=== PATIENT | female | born 1935 | race Caucasian/White ===

== ENCOUNTER 2021-02-12 16:13 | Inpatient (IN) ==
--- NOTE | 2021-02-12 17:22 | Emergency Department Note ---
HPI General Chief complaint: Shortness of Breath/Dyspnea Stated complaint: Shortness of Breath Time Seen by Provider: 02/12/21 16:43 Source: patient Mode of arrival: ambulatory Limitations: no limitations History of Present Illness HPI Narrative: Narrative: This patient with a history significant with coronary artery disease with recent stenting and CHF, bladder mass and renal failure presents with a complaint of shortness of breath. She has some chronic shortness of breath and wears up to 2 L of oxygen at baseline. These are what her reports as "good days." Today she has been having what he describes as a bad day. She has had to increase her oxygen up to 4 L/min and has not been able to get relief. She has been feeling significantly short of breath with minimal exertion which continues at rest. She does not seem to be able to recover. She did have an appointment with cardiology today. She reports this was a routine follow-up. There were no medication changes. After getting home she could not recover. Has been turned her oxygen up to 4 L and she did not seem to get relief which is why he brings her in. She has not had fever. She been without chills. She is not been experiencing chest pain. She denies any. She is not had any vomiting or diarrhea. Related Data Home Medications Medication Instructions Recorded Confirmed aspirin 81 mg tablet,delayed 81 mg PO QAM tab 12/10/20 02/05/21 release atorvastatin 80 mg tablet 40 mg PO QDAY tab 12/10/20 02/12/21 cholecalciferol (vitamin D3) 25 25 mcg PO QAM cap 12/10/20 02/05/21 mcg (1,000 unit) capsule levothyroxine 100 mcg tablet 100 mcg PO QDAY tab 01/13/21 02/05/21 prochlorperazine maleate 5 mg 5 mg PO Q6H PRN tab 01/13/21 02/05/21 tablet sildenafil (pulm.hypertension) 20 20 mg PO TID tab 01/13/21 02/05/21 mg tablet hyoscyamine sulfate 0.125 mg SUBLINGUAL TID 02/05/21 02/05/21 metoprolol succinate 25 mg PO QDAY 02/05/21 02/12/21 nitroglycerin [Nitrostat] 0.4 mg SUBLINGUAL Q5M PRN 02/05/21 02/05/21 prednisone 4 mg PO QDAY 02/05/21 02/12/21 sodium chloride 1,000 mg PO TID 02/05/21 02/05/21 diltiazem HCl 240 mg PO QAM 02/12/21 02/12/21 furosemide 20 mg PO QAM 02/12/21 02/12/21 ondansetron 4 mg PO Q6H PRN 02/12/21 02/12/21 Previous Rx's Medication Instructions Recorded ipratropium bromide 42 mcg (0.06 2 spray INTRANASAL TID PRN #45 ml 06/27/17 %) nasal spray lorazepam 1 mg tablet 1 mg PO QHS PRN #90 tab 09/28/17 Massage therapy #12 each 12/14/17 estradiol 0.5 mg tablet 0.5 mg PO QDAY #90 tab 12/14/17 clopidogrel 75 mg tablet 75 mg PO QDAY #90 tab 02/19/18 hydralazine 50 mg tablet 50 mg PO TID #300 tab 01/25/21 cephalexin 500 mg PO TID #15 cap 02/03/21 Allergies Allergy/AdvReac Type Severity Reaction Status Date / Time atenolol Allergy Mild Short of Verified 02/05/21 14:02 breath and fatigued codeine Allergy Mild Hives Verified 02/05/21 14:02 hydrocodone Allergy Mild Hives Verified 02/05/21 14:02 meperidine [From Demerol] Allergy Mild Hives Verified 02/05/21 14:02 morphine Allergy Mild Hives Verified 02/05/21 14:02 amiodarone AdvReac Mild Nausea Verified 02/05/21 14:02 all narcotics Allergy Mild swelling Uncoded 02/05/21 14:02 and Nausea Review of Systems ROS ROS Narrative: Narrative: Pertinent positives and negatives as noted in HPI. All other systems reviewed and negative. [facility] Narrative Patient History Narrative: Narrative: Medical/Surgical/Family History All Active Problems (Updated 02/12/21 @ 22:05 by Kassandra Fitzgerald PA-C) Cervical dysplasia (Chronic) Degeneration, intervertebral disc, lumbosacral (Chronic) Diverticulosis of colon (Chronic) Hyperlipidemia (Chronic) Hypothyroidism, acquired (Chronic) Irritable bowel syndrome (Chronic) Keratoconjunctivitis sicca, not specified as Sjogren's (Chronic) Nuclear sclerosis (Chronic) Polymyalgia rheumatica (Chronic 03/08/12) History of colonoscopy (Chronic 10/29/14) Arthritis (Chronic) Candidiasis of breast (Chronic) Essential hypertension (Chronic) Contusion of right elbow (Chronic) Neuralgia (Chronic) Chest pain due to myocardial ischemia (Chronic) Chest pain (Chronic) Status post cardiac surgery (Chronic) Vertigo (Chronic) Beta-lorena intolerance (Chronic) Diarrhea (Chronic) Abdominal pain (Chronic) Left supraspinatus tendinitis (Chronic) Orthostatic hypotension (Chronic) Skin tear of left lower leg without complication (Chronic) URI, acute (Chronic) ALCIRA (acute kidney injury) (Chronic) ARF (acute renal failure) (Chronic) Hyponatremia (Chronic) Hypertension (Chronic) Hypoxia (Chronic) Fluid overload (Chronic) Pleural effusion (Chronic) Bladder mass (Chronic) CAD (coronary artery disease) (Chronic) Dry heaves (Chronic) Weakness (Chronic) Cystitis (Chronic) Renal cyst (Chronic) Chills (Chronic) Painful urination (Chronic) Urgency of urination (Chronic) Anxiety (Chronic) Hematuria (Acute) Hydronephrosis of left kidney (Acute) Fatigue (Chronic) Panic attacks (Chronic) Microscopic colitis (Chronic) Moderate aortic stenosis (Chronic) Peripheral vascular disease (Chronic) Pulmonary HTN (Acute) Renal failure (ARF), acute on chronic (Acute) 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 Will be difficult to biopsy due to recent Left main BHAVYA. Cysto and brushings and urine cytology Blepharitis Bronchitis Bursitis Hip region Recorded 09/15/10 Tronchanteric bursitis CAD (coronary artery disease) Candidiasis of breast Cervical dysplasia Chest pain Chest pain due to myocardial ischemia Chills Contusion of orbital tissues Contusion of right elbow Cystitis Degeneration, intervertebral disc, lumbosacral Diarrhea Diverticulosis of colon 10/29/2014 - Dr. Barnes Dry heaves Essential hypertension Fatigue Fluid overload History of left heart catheterization (12/15/16) Hydronephrosis of left kidney Between 10/23 and Dec 2020 based on SCr trend Hyperlipidemia Hypertension B-lorena stopped and Diltiazem added. Hydralazine at 50 mg TID Holding Loop diuretic On PDEi for pulmonary HTN Hyponatremia Improved. Driven by increase renin/ang II => increased ADH release (appropriate ADH) Hypothyroidism, acquired Hypoxia Injury of right elbow Irritable bowel syndrome Keratoconjunctivitis sicca, not specified as Sjogren's Left supraspinatus tendinitis Microscopic colitis Moderate aortic stenosis Neuralgia Nuclear sclerosis Orthostatic hypotension Pain in and around eye Painful urination Panic attacks Occasional Peripheral vascular disease Pleural effusion left Polymyalgia rheumatica (03/08/12) low dose steroid dependent Renal cyst Right Skin candidiasis Skin tear of left lower leg without complication Urgency of urination URI, acute Vertigo Weakness Surgical History H/O bilateral cataract extraction 01/21/15 right eye 01/07/15 left eye History of back surgery 07/01 History of cholecystectomy History of colonoscopy (10/29/14) Dr. 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 Status post cardiac surgery RV issues noted at the time of CABG per patient report Family History Maternal Grandfather Aortic aneurysm Uncle Aortic aneurysm Mother Cardiac disease Has known bundle branch block Grandfather Heart attack Brother Heart attack Father , age 68 ALS (amyotrophic lateral sclerosis) Sister Hypertension Aunt Cancer Maternal Social History Smoking Status: Never smoker Alcohol Intake Frequency: does not drink Substance Use: does not use Exam Narrative Narrative: Narrative: Vital signs noted General: mild distress. Skin: Warm. Dry. No rash. Normal color. Mouth: Membranes moist. Normal inspection. Neck: Good ROM. No meningeal signs. Supple. Cardiovascular: Regular rate and rhythm. No murmur. Respiratory: Tachypnea, rales bilaterally. Decreased lung sounds in the bases. Gastrointestinal: Abdomen soft. No tenderness. No distention. Normal bowel sounds. No rebound tenderness or guarding. Back: Normal inspection. No CVA tenderness. No midline tenderness. Extremities: No tenderness. No swelling. No erythema. No edema. Good peripheral pulses x 4 Neurological: No focal neurological deficits observed. Alert. Oriented x 3 General Limitations: no limitations Course Course Course Narrative: Labs ordered and reviewed white count is markedly elevated. EKG shows sinus rhythm rate 88 with occasional PAC. QRS complexes are narrow and at regular intervals. Nonspecific ST changes. No significant change compared to prior EKG from 02/03/2021 other than the presence of PACs now. X-ray is significant for pulmonary congestion with bilateral pleural effusions. Radiology also identifies infiltrate. Lactic acid is 1.9 proBNP is 17,000, this is increased from 11,000 on the . Troponin is mildly elevated at 0.03. Creatinine is elevated at 2.6 with a BUN of 47. This is increased from prior value of 1.3 and 35 on the . Troponin is attributed to the worsening kidney function. Patient has not had any chest pain. Patient is treated with 40 mg IV Lasix. She is also medicated with Rocephin and azithromycin for pneumonia. Patient is discussed with the hospital service for management of pneumonia, and congestive heart failure with fluid overload as well as renal insufficiency and dehydration. Vital Signs Vital signs: Vital Signs Temperature 99.5 F H 02/12/21 16:14 Pulse Rate 90 02/12/21 16:14 Respiratory Rate 26 H 02/12/21 16:14 Blood Pressure 165/66 02/12/21 16:14 Pulse Oximetry (%) 89 L 02/12/21 16:14 Temperature 99.5 F H 02/12/21 16:14 Pulse Rate 89 02/12/21 21:41 Respiratory Rate 26 H 02/12/21 16:14 Blood Pressure 148/76 02/12/21 21:41 Pulse Oximetry (%) 92 02/12/21 21:41 MDM MDM Narrative Medical decision making narrative: Narrative: Lab Data Result diagrams: 02/12/21 17:21 Labs: Lab Results 02/12/21 02/12/21 02/12/21 Range/Units 17:21 17:21 17:21 WBC 17.1 H (4.5-11.0) K/mcL RBC 3.30 L (3.59-5.38) M/mcL Hgb 10.2 L (11.2-15.7) g/dL Hct 30.7 L (34.1-44.9) % POC Hct 33 L (36-48) % MCV 93.0 (80.0-100.0) fL MCH 30.9 (26.0-34.0) pg MCHC 33.2 (31.0-36.0) g/dL RDW 16.8 H (11.5-14.5) % Plt Count 155 (140-440) K/mcL MPV 10.2 (7.4-10.4) fL Neut % (Auto) 83.3 H (38.0-78.0) % Lymph % (Auto) 9.8 L (15.5-49.0) % [place] % (Auto) 6.6 (1.0-12.0) % Eos % (Auto) 0.1 (0.0-7.0) % Baso % (Auto) 0.2 (0.0-2.0) % Lymph # (Auto) 1.67 (1.50-4.80) K/mcL [place] # (Auto) 1.12 H (0.10-0.90) K/mcL Eos # (Auto) 0.02 (0.00-0.70) K/mcL Baso # (Auto) 0.04 (0.00-0.30) K/mcL Absolute Neutrophils 14.20 H (1.80-8.00) K/mcL POC Sodium 137 (133-145) mEq/L POC Potassium 3.3 (3.3-5.1) mEql/L POC Chloride 102 (96-108) mEq/L POC Total CO2 21 L (22-30) mmol/L POC BUN 47 H (6-20) mg/dL POC Creatinine 2.6 H (0.6-1.2) mg/dL POC Glucose 114 H (70-105) mg/dL POC WB Ioniz Calcium 1.08 L (1.16-1.32) mmEq/L Total Creatine Kinase 53 (24-170) U/L CK-MB (CK-2) 1.7 (<3.7) ng/mL Troponin T 0.03 H (<0.03) ng/mL NT-Pro-B Natriuret Pep 46418.0 H (<450.0) pg/mL ED POC Tests ED POC Tests: JOSH - SARS Antigen Negative Discharge Plan Patient/Caregiver Discharge Instructions Pt seen by AREA COORDINATOR/PA only: Yes Clinical Impression: Pneumonia, ALCIRA (acute kidney injury), Pleural effusion, CHF (congestive heart failure) Patient Disposition: Xfer As Outpt/Obs ([facility]) Follow up with: David Ríos MD [Primary Care Provider] - Prescriptions: No Action ipratropium bromide 42 mcg (0.06 %) spray,non-aerosol 2 spray INTRANASAL TID PRN (Reason: allergy symptoms) Qty: 45 RF: 3 clopidogrel 75 mg tablet 75 mg PO QDAY Qty: 90 RF: 3 hydralazine 50 mg tablet 50 mg PO TID Qty: 300 RF: 3 (DME) Massage therapy Qty: 12 RF: 0 estradiol 0.5 mg tablet 0.5 mg PO QDAY Qty: 90 RF: 3 lorazepam 1 mg tablet 1 mg PO QHS PRN (Reason: insomnia) Qty: 90 RF: 1 aspirin 81 mg tablet,delayed release (DR/EC) 81 mg PO QAM RF: 0 atorvastatin 80 mg tablet 40 mg PO QDAY RF: 0 cholecalciferol (vitamin D3) 25 mcg (1,000 unit) capsule 25 mcg PO QAM RF: 0 levothyroxine 100 mcg tablet 100 mcg PO QDAY RF: 0 sildenafil (pulm.hypertension) 20 mg tablet 20 mg PO TID RF: 0 prochlorperazine maleate 5 mg tablet 5 mg PO Q6H PRN (Reason: nausea and vomiting) RF: 0 sodium chloride 1 gram Tablet 1,000 mg PO TID RF: 0 hyoscyamine sulfate 0.125 mg tablet, sublingual 0.125 mg sublingual TID RF: 0 nitroglycerin [Nitrostat] 0.4 mg Tablet, Sublingual 0.4 mg SUBLINGUAL Q5M PRN (Reason: Chest Pain) RF: 0 metoprolol succinate 25 mg Tablet Extended Release 24 Hr 25 mg PO QDAY RF: 0 prednisone 5 mg tablet 4 mg PO QDAY RF: 0 cephalexin 500 mg capsule 500 mg PO TID Qty: 15 RF: 0 diltiazem HCl 240 mg capsule,extended release 24hr 240 mg PO QAM RF: 0 ondansetron 4 mg Tablet,Disintegrating 4 mg PO Q6H PRN (Reason: Nausea) RF: 0 furosemide 40 mg tablet 20 mg PO QAM RF: 0
[2021-02-12 17:34] LABS: POC Blood Urea Nitrogen 47 mg/dL (6-20); POC CO2 21 mmol/L (22-30); POC Calcium, Ionized 1.08 mmEq/L (1.16-1.32); POC Chloride 102 mEq/L (96-108); POC Creatinine 2.6 mg/dL (0.6-1.2); POC Glucose, Random 114 mg/dL (70-105); POC Hematocrit 33 % (36-48); POC Potassium 3.3 mEql/L (3.3-5.1); POC Sodium 137 mEq/L (133-145)
[2021-02-12] MEDS ORDERED: FUROSEMIDE 40 MG/4 ML VIAL IV ONE (17:51)
[2021-02-12 18:03] LABS: Basophils # (Auto) 0.04 K/mcL (0.00-0.30); Basophils % (Auto) 0.2 % (0.0-2.0); Eosinophils # (Auto) 0.02 K/mcL (0.00-0.70); Eosinophils % (Auto) 0.1 % (0.0-7.0); Hematocrit 30.7 % (34.1-44.9); Hemoglobin 10.2 g/dL (11.2-15.7); Lymphocytes # (Auto) 1.67 K/mcL (1.50-4.80); Lymphocytes % (Auto) 9.8 % (15.5-49.0); Mean Corpuscular HGB Conc 33.2 g/dL (31.0-36.0); Mean Platelet Volume 10.2 fL (7.4-10.4); Monocytes # (Auto) 1.12 K/mcL (0.10-0.90); Monocytes % (Auto) 6.6 % (1.0-12.0); Neutrophils % (Auto) 83.3 % (38.0-78.0); Platelet Count 155 K/mcL (140-440); Red Cell Distribution Width 16.8 % (11.5-14.5); WBC 17.1 K/mcL (4.5-11.0)
[2021-02-12 18:32] LABS: Creatine Kinase 53 U/L (24-170); Creatine Kinase MB 1.7 ng/mL (<3.7)
--- NOTE | 2021-02-12 18:37 | XRay Report ---
CLINICAL INFORMATION: sob COMPARISON: 02/03/2021 FINDINGS: Moderate cardiomegaly is unchanged. Sternotomy changes noted. Mediastinum is unremarkable. Pulmonary vessels are moderately distended and there is moderate peribronchovascular edema. Large left and moderate right pleural effusion with compressive atelectasis or, less likely, infiltrates in the lung bases show slight progression IMPRESSION: Moderate CHF. Large left and moderate right pleural effusion. Moderate bibasilar airspace disease is likely compressive atelectasis, however infiltrate not excluded Interpreted and Authenticated by: Yeyo Gaston 02/12/21
[2021-02-12] MEDS ORDERED: cefTRIAXone 1 GM VIAL IV ONE (18:51)
[2021-02-12] MEDS ORDERED: AZITHROMYCIN 500 MG in DEXTROSE 5% IN WATER 250 ML IV ONE (18:51)
--- NOTE | 2021-02-12 23:11 | Internal Med History&Physical ---
HPI History of Present Illness Patient information: Note initiated : 02/12/21 at 11:10 pm Service Date, if different from initiated Date: [] Patient: Holly Hernandez a 85 y/o F admitted on for Shortness of Breath. Chief Complaint: [CHF exacerbation, pneumonia] History of present illness: Ms. Hernandez is a 85 year old F CAD status post stenting, CHF, pulmonary hypertension, chronic kidney disease stage III, hypothyroidism, home oxygen therapy, presenting with 1 day history of acute on chronic respiratory failure. She used home oxygen up to 2 L for good days and even more for bad days according to . 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 She had increasing degree of shortness of breath after the appointment to the point that she increased her oxygen to 4 L but still felt short of breath. Patient is otherwise unable to provide much details of her symptoms such as whether or not she has cough, wheezing, chest pain, fever or chills, unintentional weight gain, leg swellings, etc. patient presented to our ED for further evaluations for worsening shortness of breath. Vital signs significant for oxygen saturations in the high 80s on 2 L of supplemental oxygen's. Rest of the vital signs within normal limits. Labs significant for leukocytosis with WBC 17.1. BNP elevated to 17,000. Serum troponin 0.03. Serum creatinine 2.6 with baseline 1.3. Chest x-ray showing bilateral moderate to severe pleural effusion as well as moderate bibasilar atelectasis versus infiltrate. Constitutional Constitutional: Absent chills, excessive sweating, fatigue, fever(s) and weakness EENT Eyes: Absent blurry vision, change in vision, loss of vision and other visual disturbances Ears: Absent decreased hearing and tinnitus Nose, mouth and throat: Absent abnormal hearing, dry mouth, headache(s), nasal congestion and sore throat Cardiovascular Cardiovascular: Absent chest pain, chest pain at rest, edema, irregular heart rhythm and palpatations Respiratory Respiratory: Present dyspnea; Absent cough and wheezing Gastrointestinal Gastrointestinal: Absent abdominal pain, constipation, diarrhea, nausea and vomiting Musculoskeletal Musculoskeletal: Absent back pain, deformity, limited range of motion, muscle cramps, muscle weakness and numbness Integumentary Integumentary: Absent lesions, rash and wounds Neurological Neurological: Absent focal weakness, headache(s) and numbness Psychiatric Psychiatric: Absent anxiety, depression and hallucinations PFSH PFSH All Active Problems (Updated 02/12/21 @ 23:21 by Krishna Hinojosa MD) Acute on chronic respiratory failure with hypoxemia (Acute) On home oxygen therapy (Acute) CHF exacerbation (Acute) Chronic kidney disease, stage 3 (Acute) Stage 2 acute kidney injury (Acute) Cervical dysplasia (Chronic) Degeneration, intervertebral disc, lumbosacral (Chronic) Diverticulosis of colon (Chronic) Hyperlipidemia (Chronic) Hypothyroidism, acquired (Chronic) Irritable bowel syndrome (Chronic) Keratoconjunctivitis sicca, not specified as Sjogren's (Chronic) Nuclear sclerosis (Chronic) Polymyalgia rheumatica (Chronic 03/08/12) History of colonoscopy (Chronic 10/29/14) Arthritis (Chronic) Candidiasis of breast (Chronic) Essential hypertension (Chronic) Contusion of right elbow (Chronic) Neuralgia (Chronic) Chest pain due to myocardial ischemia (Chronic) Chest pain (Chronic) Status post cardiac surgery (Chronic) Vertigo (Chronic) Beta-lorena intolerance (Chronic) Diarrhea (Chronic) Abdominal pain (Chronic) Left supraspinatus tendinitis (Chronic) Orthostatic hypotension (Chronic) Skin tear of left lower leg without complication (Chronic) URI, acute (Chronic) ALCIRA (acute kidney injury) (Chronic) ARF (acute renal failure) (Chronic) Hyponatremia (Chronic) Hypertension (Chronic) Hypoxia (Chronic) Fluid overload (Chronic) Pleural effusion (Chronic) Bladder mass (Chronic) CAD (coronary artery disease) (Chronic) Dry heaves (Chronic) Weakness (Chronic) Cystitis (Chronic) Renal cyst (Chronic) Chills (Chronic) Painful urination (Chronic) Urgency of urination (Chronic) Anxiety (Chronic) Hematuria (Acute) Hydronephrosis of left kidney (Acute) Fatigue (Chronic) Panic attacks (Chronic) Microscopic colitis (Chronic) Moderate aortic stenosis (Chronic) Peripheral vascular disease (Chronic) Pulmonary HTN (Acute) Renal failure (ARF), acute on chronic (Acute) 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 Will be difficult to biopsy due to recent Left main BHAVYA. Cysto and brushings and urine cytology Blepharitis Bronchitis Bursitis Hip region Recorded 09/15/10 Tronchanteric bursitis CAD (coronary artery disease) Candidiasis of breast Cervical dysplasia Chest pain Chest pain due to myocardial ischemia Chills Contusion of orbital tissues Contusion of right elbow Cystitis Degeneration, intervertebral disc, lumbosacral Diarrhea Diverticulosis of colon 10/29/2014 - Dr. Barnes Dry heaves Essential hypertension Fatigue Fluid overload History of left heart catheterization (12/15/16) Hydronephrosis of left kidney Between 10/23 and Dec 2020 based on SCr trend Hyperlipidemia Hypertension B-lorena stopped and Diltiazem added. Hydralazine at 50 mg TID Holding Loop diuretic On PDEi for pulmonary HTN Hyponatremia Improved. Driven by increase renin/ang II => increased ADH release (appropriate ADH) Hypothyroidism, acquired Hypoxia Injury of right elbow Irritable bowel syndrome Keratoconjunctivitis sicca, not specified as Sjogren's Left supraspinatus tendinitis Microscopic colitis Moderate aortic stenosis Neuralgia Nuclear sclerosis Orthostatic hypotension Pain in and around eye Painful urination Panic attacks Occasional Peripheral vascular disease Pleural effusion left Polymyalgia rheumatica (03/08/12) low dose steroid dependent Renal cyst Right Skin candidiasis Skin tear of left lower leg without complication Urgency of urination URI, acute Vertigo Weakness Surgical History H/O bilateral cataract extraction 01/21/15 right eye 01/07/15 left eye History of back surgery 07/01 History of cholecystectomy History of colonoscopy (10/29/14) Dr. 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 Status post cardiac surgery RV issues noted at the time of CABG per patient report Family History Maternal Grandfather Aortic aneurysm Uncle Aortic aneurysm Mother Cardiac disease Has known bundle branch block Grandfather Heart attack Brother Heart attack Father , age 68 ALS (amyotrophic lateral sclerosis) Sister Hypertension Aunt Cancer Maternal Social History household members: spouse marital status: occupational status: retired smoking status: Never smoker alcohol intake frequency: does not drink substance use type: does not use umang/samaritan: [employer] Home Medications and Allergies Home Medications Medication Instructions Recorded Confirmed Type ipratropium bromide 42 mcg (0.06 2 spray INTRANASAL TID PRN #45 ml 06/27/17 02/05/21 Rx %) nasal spray lorazepam 1 mg tablet 1 mg PO QHS PRN #90 tab 09/28/17 02/05/21 Rx Massage therapy #12 each 12/14/17 01/18/21 Rx estradiol 0.5 mg tablet 0.5 mg PO QDAY #90 tab 12/14/17 02/05/21 Rx clopidogrel 75 mg tablet 75 mg PO QDAY #90 tab 02/19/18 02/05/21 Rx aspirin 81 mg tablet,delayed 81 mg PO QAM tab 12/10/20 02/05/21 History release atorvastatin 80 mg tablet 40 mg PO QDAY tab 12/10/20 02/12/21 History cholecalciferol (vitamin D3) 25 25 mcg PO QAM cap 12/10/20 02/05/21 History mcg (1,000 unit) capsule levothyroxine 100 mcg tablet 100 mcg PO QDAY tab 01/13/21 02/05/21 History prochlorperazine maleate 5 mg 5 mg PO Q6H PRN tab 01/13/21 02/05/21 History tablet sildenafil (pulm.hypertension) 20 20 mg PO TID tab 01/13/21 02/05/21 History mg tablet hydralazine 50 mg tablet 50 mg PO TID #300 tab 01/25/21 02/12/21 Rx cephalexin 500 mg PO TID #15 cap 02/03/21 02/05/21 Rx hyoscyamine sulfate 0.125 mg SUBLINGUAL TID 02/05/21 02/05/21 History metoprolol succinate 25 mg PO QDAY 02/05/21 02/12/21 History nitroglycerin [Nitrostat] 0.4 mg SUBLINGUAL Q5M PRN 02/05/21 02/05/21 History prednisone 4 mg PO QDAY 02/05/21 02/12/21 History sodium chloride 1,000 mg PO TID 02/05/21 02/05/21 History diltiazem HCl 240 mg PO QAM 02/12/21 02/12/21 History furosemide 20 mg PO QAM 02/12/21 02/12/21 History ondansetron 4 mg PO Q6H PRN 02/12/21 02/12/21 History Allergies Allergy/AdvReac Type Severity Reaction Status Date / Time atenolol Allergy Mild Short of Verified 02/05/21 14:02 breath and fatigued codeine Allergy Mild Hives Verified 02/05/21 14:02 hydrocodone Allergy Mild Hives Verified 02/05/21 14:02 meperidine [From Demerol] Allergy Mild Hives Verified 02/05/21 14:02 morphine Allergy Mild Hives Verified 02/05/21 14:02 amiodarone AdvReac Mild Nausea Verified 02/05/21 14:02 all narcotics Allergy Mild swelling Uncoded 02/05/21 14:02 and Nausea EXAM Constitutional Vitals: Temp Pulse Resp BP Pulse Ox 37.5 C H 92 H 26 H 149/74 91 02/12/21 16:14 02/12/21 23:04 02/12/21 16:14 02/12/21 23:04 02/12/21 23:04 General appearance: cooperative, disheveled, mild distress and thin Head Head exam: Present atraumatic and normocephalic Eye Eye exam: Present EOMI and PERRL ENT ENT exam: Present mucous membranes moist, normal exam and normal external ear exam Additional comments: Nasal cannula in place Neck Neck exam: Present normal inspection; Absent lymphadenopathy, tenderness and thyromegaly Respiratory Respiratory exam: Present decreased breath sounds; Absent accessory muscle use, respiratory distress and wheezes Cardiovascular Cardiovascular exam: Present normal rate and rhythm; Absent JVD GI/Abdominal GI/Abdominal exam: Present normal bowel sounds and soft; Absent organomegaly and tenderness Extremities Exam Extremities exam: Present full ROM, normal capillary refill, normal inspection and pedal edema; Absent tenderness Neurological Exam Neurological exam: Present alert, CN II-XII intact and oriented X3; Absent motor sensory deficit Psychiatric Psychiatric exam: Present normal affect and normal mood; Absent anxious and depressed Skin Skin exam: Present dry and intact DATA Data Completed and Pending Labs: Labs from last 24 hours 02/12/21 02/12/21 02/12/21 17:21 17:21 17:21 WBC 17.1 H RBC 3.30 L Hgb 10.2 L Hct 30.7 L POC Hct 33 L MCV 93.0 MCH 30.9 MCHC 33.2 RDW 16.8 H Plt Count 155 MPV 10.2 Neut % (Auto) 83.3 H Lymph % (Auto) 9.8 L [place] % (Auto) 6.6 Eos % (Auto) 0.1 Baso % (Auto) 0.2 Lymph # (Auto) 1.67 [place] # (Auto) 1.12 H Eos # (Auto) 0.02 Baso # (Auto) 0.04 Absolute Neutrophils 14.20 H POC Sodium 137 POC Potassium 3.3 POC Chloride 102 POC Total CO2 21 L POC BUN 47 H POC Creatinine 2.6 H POC Glucose 114 H POC WB Ioniz Calcium 1.08 L Total Creatine Kinase 53 CK-MB (CK-2) 1.7 Troponin T 0.03 H NT-Pro-B Natriuret Pep 78624.0 H A/P Assessment and plan (1) Hypothyroidism, acquired: Status: Chronic (2) Hyperlipidemia: Status: Chronic Qualifiers: Hyperlipidemia type: mixed hyperlipidemia Qualified Code(s): E78.2 - Mixed hyperlipidemia (3) Essential hypertension: Status: Chronic (4) Stage 2 acute kidney injury: Status: Acute (5) Chronic kidney disease, stage 3: Status: Acute (6) Pleural effusion: Status: Chronic Comment: left (7) Pulmonary HTN: Status: Acute Comment: Suspect PFO and intracardiac shunt has caused pulmonary HTN. Defer to Dr Johnson on what, if anything can be done. Avoid IV contrast. No evidence or Hx of prior drug use associated with pulmonary HTN, Pulmonary emboli, smoking etc. (8) CHF exacerbation: Status: Acute (9) Bladder mass: Status: Chronic Comment: See below. Will be difficult to biopsy due to recent Left main BHAVYA. Cysto and brushings and urine cytology (10) On home oxygen therapy: Status: Acute (11) Acute on chronic respiratory failure with hypoxemia: Status: Acute (12) CAD (coronary artery disease): Status: Chronic Narrative A/P Narrative: Assessment and plan: 1. Acute on chronic respiratory failure with hypoxemia secondary to diastolic CHF exacerbations with associated bilateral pleural effusions: Admit to inpatient MedSurg with telemetry Intake and output Daily weight 2 L/day fluid restriction Lasix 40 mg IV twice daily Metoprolol Consider adding LUPE inhibitor or ARB when kidney function improved Aldactone currently not indicated given preserved LVEF Oxygen therapy titrate to achieve SPO2 greater than or equal to 92% #2 moderate aortic stenosis: Continue symptomatic control 3. Pulmonary hypertension: Continue sildenafil Continue diltiazem Continue prednisone Oxygen therapy titrate to achieve SPO2 greater than or equal to 92% #4 history of CAD status post stenting: Aspirin Plavix Statin #5 history of essential hypertension's: Currently normotensive Continue beta-lorena, diltiazem, as well as diuretics #6 mixed dyslipidemia: Continue statin therapy next #7 hypothyroidism: Continue thyroid replacement therapy #8 acute on chronic kidney injury: Avoid nephrotoxic agents such as LUPE inhibitor or ARB Lasix IV CMP in the morning to trend kidney functions #9 bladder mass: Will notify urologist Dr. Leo inpatient versus outpatient management #10 community-acquired pneumonia: Blood culture Consider repeat chest x-ray in a few days Rocephin Zithromax Tylenol as needed fever Robitussin DM as needed cough DuoNeb nebs as needed wheezing Covid PCR to rule out Covid pneumonia GI prophylaxis: Not currently indicated DVT prophylaxis: Heparin CODE STATUS: Full code Prognosis: Guarded Dispositions: Inpatient MedSurg with telemetry Time Spent With Patient Time: Total time spent is greater than 50% in coordination of care (as documented) at patient's floor/unit and/or counseling patient: Total time spent with greater than 50% in coordination of care (as documented) at patient's floor/unit and/or counseling patient:: Greater than 35 minutes
[2021-02-12] MEDS ORDERED: ACETAMINOPHEN 325 MG TABLET PO PRN (23:21)
[2021-02-12] MEDS ORDERED: IPRATROPIUM/ALBUTEROL 3 ML AMPUL.NEB NEB PRN ×2 (23:21→23:30)
[2021-02-12] MEDS ORDERED: ZOLPIDEM 5 MG TABLET PO PRN ×2 (23:21→23:30)
[2021-02-12] MEDS ORDERED: LORazepam (PP) 1 MG TABLET (#4) PO PRN (23:21)
[2021-02-12] MEDS ORDERED: ONDANSETRON 4 MG/2 ML VIAL IV PRN ×2 (23:21→23:30)
[2021-02-12] MEDS ORDERED: cefTRIAXone 1 GM in DEXTROSE 5% IN WATER 50 ML IV SCH (23:21)
[2021-02-12] MEDS ORDERED: AZITHROMYCIN 500 MG in DEXTROSE 5% IN WATER 250 ML IV SCH (23:21)
[2021-02-12] MEDS ORDERED: IPRATROPIUM 0.06% NASAL SPRAY BOTTLE 30ML NAS PRN ×2 (23:21→23:30)
[2021-02-12] MEDS ORDERED: NITROGLYCERIN (PP) 0.4 MG TAB.SUBL (#25) SL PRN (23:21)
[2021-02-12] MEDS ORDERED: guaiFENesin/DEXTROMETHORPHAN ORAL SOL PO PRN (23:30)
[2021-02-13] MEDS: 0.9 % SODIUM CHLORIDE 10 ML SYRINGE IV SCH ×3 (05:25→21:31)
[2021-02-13] MEDS ORDERED: 0.9 % SODIUM CHLORIDE 10 ML SYRINGE IV SCH (06:00)
[2021-02-13] MEDS ORDERED: NITROGLYCERIN 0.4 MG TAB.SUBL SL PRN (07:51)
[2021-02-13] MEDS ORDERED: FUROSEMIDE 40 MG/4 ML VIAL IV SCH (08:00)
[2021-02-13] MEDS: cefTRIAXone 1 GM VIAL IV SCH (08:27)
[2021-02-13] MEDS: HEPARIN 5,000 UNIT/ML VIAL SQ SCH ×2 (08:27→21:30)
[2021-02-13] MEDS: FUROSEMIDE 40 MG/4 ML VIAL IV SCH ×2 (08:28→16:09)
[2021-02-13] MEDS: DOCUSATE SODIUM 100 MG CAPSULE PO SCH ×2 (08:29→21:40)
[2021-02-13] MEDS: DILTIAZEM 240 MG CAP.XL.24H PO SCH (08:29)
[2021-02-13] MEDS: METOPROLOL SUCCINATE 25 MG TAB.XL.24H PO SCH (08:29)
[2021-02-13] MEDS: CLOPIDOGREL 75 MG TABLET PO SCH (08:29)
[2021-02-13] MEDS: predniSONE 1 MG TABLET PO SCH (08:29)
[2021-02-13] MEDS: hydrALAZINE 25 MG TABLET PO SCH ×3 (08:29→21:30)
[2021-02-13] MEDS: LEVOTHYROXINE 100 MCG TABLET PO SCH (08:30)
[2021-02-13] MEDS: ACETAMINOPHEN 325 MG TABLET PO PRN (08:30)
[2021-02-13] MEDS: VITAMIN D3 1,000 UNIT TABLET PO SCH (08:31)
[2021-02-13] MEDS: ATORVASTATIN 40 MG TABLET PO SCH (08:31)
[2021-02-13] MEDS: ESTRADIOL 1 MG TABLET PO SCH (08:31)
[2021-02-13] MEDS: ASPIRIN 81 MG TAB.CHEW PO SCH (08:31)
[2021-02-13] MEDS ORDERED: DOCUSATE SODIUM 100 MG CAPSULE PO SCH (09:00)
[2021-02-13] MEDS ORDERED: CLOPIDOGREL 75 MG TABLET PO SCH (09:00)
[2021-02-13] MEDS ORDERED: METOPROLOL SUCCINATE 25 MG TAB.XL.24H PO SCH (09:00)
[2021-02-13] MEDS ORDERED: ESTRADIOL 0.5 MG TABLET PO SCH (09:00)
[2021-02-13] MEDS ORDERED: NON FORMULARY MEDICATION 1 DOSE MISCELL (Sildenafil (Pulm.Hypertension) 20 mg tablet) PO SCH (09:00)
[2021-02-13] MEDS ORDERED: ASPIRIN 325 MG ENTERIC COATED TABLET PO SCH (09:00)
[2021-02-13] MEDS ORDERED: NON FORMULARY MEDICATION 1 DOSE MISCELL (Atorvastatin 80 mg tablet) PO SCH (09:00)
[2021-02-13] MEDS ORDERED: DILTIAZEM 240 MG CAP.XL.24H PO SCH (09:00)
[2021-02-13] MEDS ORDERED: HEPARIN 5,000 UNIT/ML VIAL SQ SCH (09:00)
[2021-02-13] MEDS ORDERED: LEVOTHYROXINE 100 MCG TABLET PO SCH (09:00)
[2021-02-13] MEDS ORDERED: HYDRALAZINE 50 MG PO SCH (09:00)
[2021-02-13] MEDS ORDERED: HYOSCYAMINE SULFATE 0.125 MG TABLET SL SCH (09:00)
[2021-02-13] MEDS ORDERED: predniSONE 5 MG TABLET PO SCH (09:00)
[2021-02-13] MEDS ORDERED: SODIUM CHLORIDE 1 GM TABLET PO SCH ×2 (09:00)
[2021-02-13 09:30] LABS: ALT/SGPT 9 U/L (<40); AST/SGOT 18 U/L (<32); Albumin 3.1 gm/dL (3.2-5.2); Albumin/Globulin Ratio 0.9 (1.0-2.3); Alkaline Phosphatase 60 U/L (39-117); Bilirubin,Total 0.6 mg/dL (0.1-1.0); Blood Urea Nitrogen 54 mg/dL (8-23); Calcium 8.4 mg/dL (8.6-10.4); Carbon Dioxide 23 mmol/L (22-30); Chloride 97 mmol/L (96-108); Globulin 3.3 gm/dL (2.2-3.7); Glomerular Filtration Rate 17; Glucose 83 mg/dL (70-105)
[2021-02-13] MEDS: AZITHROMYCIN 500 MG in DEXTROSE 5% IN WATER 250 ML IV SCH (10:18)
[2021-02-13] MEDS: HYOSCYAMINE SULFATE 0.125 MG TABLET SL SCH ×3 (10:19→21:30)
[2021-02-13] MEDS: SILDENAFIL 20 MG PO SCH ×3 (10:40→21:35)
[2021-02-13 12:17] LABS: Basophils # (Auto) 0.05 K/mcL (0.00-0.30); Basophils % (Auto) 0.4 % (0.0-2.0); Eosinophils # (Auto) 0.03 K/mcL (0.00-0.70); Eosinophils % (Auto) 0.2 % (0.0-7.0); Hematocrit 27.1 % (34.1-44.9); Hemoglobin 8.6 g/dL (11.2-15.7); Lymphocytes # (Auto) 1.58 K/mcL (1.50-4.80); Lymphocytes % (Auto) 11.4 % (15.5-49.0); Mean Cell Volume 99.6 fL (80.0-100.0); Mean Corpuscular HGB Conc 31.7 g/dL (31.0-36.0); Mean Platelet Volume 11.8 fL (7.4-10.4); Monocytes # (Auto) 1.15 K/mcL (0.10-0.90); Monocytes % (Auto) 8.3 % (1.0-12.0); Neutrophils % (Auto) 79.7 % (38.0-78.0); Platelet Count 120 K/mcL (140-440); RBC 2.72 M/mcL (3.59-5.38); Red Cell Distribution Width 17.1 % (11.5-14.5); WBC 13.9 K/mcL (4.5-11.0)
--- NOTE | 2021-02-13 15:33 | Internal Med Progress Note ---
SUBJECTIVE Subjective Patient information: Note initiated : 02/13/21 at 3:23 pm Service Date, if different from initiated Date: [] Patient: Holly Hernandez a 85 y/o F admitted on 02/12/21 for Shortness of Breath. Chief Complaint: [CHF exacerbation and pneumonia] Interval history: History of present illness: Ms. Hernandez is a 85 year old F CAD status post stenting, CHF, pulmonary hypertension, chronic kidney disease stage III, hypothyroidism, home oxygen therapy, presenting with 1 day history of acute on chronic respiratory failure. She used home oxygen up to 2 L for good days and even more for bad days according to . Today she had a routine appointment with her health insurance specialist and there is no change of her cardiac medications. She had increasing degree of shortness of breath after the appointment to the point that she increased her oxygen to 4 L but still felt short of breath. Patient is otherwise unable to provide much details of her symptoms such as whether or not she has cough, wheezing, chest pain, fever or chills, unintentional weight gain, leg swellings, etc. patient presented to our ED for further evaluations for worsening shortness of breath. Vital signs significant for oxygen saturations in the high 80s on 2 L of supplemental oxygen's. Rest of the vital signs within normal limits. Labs significant for leukocytosis with WBC 17.1. BNP elevated to 17,000. Serum troponin 0.03. Serum creatinine 2.6 with baseline 1.3. Chest x-ray showing bilateral moderate to severe pleural effusion as well as moderate bibasilar atelectasis versus infiltrate. 02/13: Low-grade fever with T-max 37.7 overnight. Oxygen requirement up to 6 L/min overnight and currently she is on 4 L/min. She is committing of mild shortness of breath. She denies any cough or sputum productions. She denies any wheezing. She denies any fever or chills. She is complaining of constipations. She is committing of general body weakness. Constitutional Vitals: Vital Signs Temp Pulse Resp BP Pulse Ox 37.1 C 83 16 155/63 91 02/13/21 12:00 02/13/21 12:00 02/13/21 12:00 02/13/21 12:00 02/13/21 12:00 Period Temp Pulse Resp BP Sys/Diaz Pulse Ox Last 24 Hr 37.1 C-37.7 C 76-95 16-26 135-174/58-95 88-98 Intake and Output 02/13/21 02/13/21 02/13/21 05:59 13:59 21:59 Intake Total 100 240 Output Total 300 800 Balance -200 -560 Weight 49.016 kg Intake & Output: Intake & Output 02/13/21 02/13/21 02/13/21 05:59 13:59 21:59 Intake Total 100 240 Output Total 300 800 Balance -200 -560 Weight 49.016 kg Intake: Oral 100 240 Output: Void Amount 300 800 Other: Meal Lunch Percent of Meal Consumed 100% Feeding Ability Independent Urine Appearance Clear Clear Sediment Urine Color Dark Yellow Dark Yellow Urine Odor Normal Stool Size Smear Stool Color Brown Green Stool Consistency Liquid Loose General appearance: cooperative and no acute distress Head Head exam: Present atraumatic and normocephalic Eye Eye exam: Present EOMI and PERRL ENT ENT exam: Present mucous membranes moist, normal exam and normal external ear exam Additional comments: Nasal cannula Neck Neck exam: Present normal inspection; Absent lymphadenopathy, tenderness and thyromegaly Respiratory Respiratory exam: Present rhonchi; Absent accessory muscle use, respiratory distress and wheezes Cardiovascular Cardiovascular exam: Present normal rate and rhythm; Absent JVD GI/Abdominal GI/Abdominal exam: Present normal bowel sounds and soft; Absent organomegaly and tenderness Extremities Exam Extremities exam: Present full ROM, normal capillary refill and normal inspection; Absent tenderness Neurological Exam Neurological exam: Present alert, CN II-XII intact and oriented X3; Absent motor sensory deficit Psychiatric Psychiatric exam: Present normal affect and normal mood; Absent anxious and depressed Skin Skin exam: Present dry and intact OBJ DATA Labs CBC & Chem 7: 02/13/21 03:15 02/13/21 03:15 Labs: Abnormal Lab Results 02/13/21 02/13/21 02/12/21 03:15 03:15 17:21 WBC 13.9 H RBC 2.72 L Hgb 8.6 L Hct 27.1 L POC Hct RDW 17.1 H Plt Count 120 L MPV 11.8 H Neut % (Auto) 79.7 H Lymph % (Auto) 11.4 L [place] # (Auto) 1.15 H Absolute Neutrophils 11.11 H POC Total CO2 POC BUN BUN 54 H Creatinine 2.5 H POC Creatinine POC Glucose Calcium 8.4 L POC WB Ioniz Calcium Troponin T 0.03 H NT-Pro-B Natriuret Pep Albumin 3.1 L Albumin/Globulin Ratio 0.9 L 02/12/21 02/12/21 17:21 17:21 WBC 17.1 H RBC 3.30 L Hgb 10.2 L Hct 30.7 L POC Hct 33 L RDW 16.8 H Plt Count MPV Neut % (Auto) 83.3 H Lymph % (Auto) 9.8 L [place] # (Auto) 1.12 H Absolute Neutrophils 14.20 H POC Total CO2 21 L POC BUN 47 H BUN Creatinine POC Creatinine 2.6 H POC Glucose 114 H Calcium POC WB Ioniz Calcium 1.08 L Troponin T NT-Pro-B Natriuret Pep 21323.0 H Albumin Albumin/Globulin Ratio Meds: Medications Acetaminophen (Acetaminophen 325 Mg Tablet) 650 mg PO Q6HP PRN; Protocol PRN Reason: Per Pain Protocol/Fever > 101 Last Admin: 02/13/21 08:30 Dose: 650 mg Documented by: Albuterol/Ipratropium (Ipratropium/Albuterol 3 Ml Ampul.Neb) 3 ml NEB Q4HRT PRN PRN Reason: Wheezing Aspirin (Aspirin 81 Mg Tab.Chew) 81 mg PO DAILY [facility] Last Admin: 02/13/21 08:31 Dose: 81 mg Documented by: Atorvastatin Calcium (Atorvastatin 40 Mg Tablet) 40 mg PO DAILY [facility] Last Admin: 02/13/21 08:31 Dose: 40 mg Documented by: Ceftriaxone Sodium (Ceftriaxone 1 Gm Vial) 1 gm IV DAILY [facility] Last Admin: 02/13/21 08:27 Dose: 1 gm Documented by: Clopidogrel Bisulfate (Clopidogrel 75 Mg Tablet) 75 mg PO QDAY [facility] Last Admin: 02/13/21 08:29 Dose: 75 mg Documented by: Diltiazem HCl (Diltiazem 240 Mg Cap.Xl.24h) 240 mg PO QAM [facility] Last Admin: 02/13/21 08:29 Dose: 240 mg Documented by: Docusate Sodium (Docusate Sodium 100 Mg Capsule) 100 mg PO BID [facility] Last Admin: 02/13/21 08:29 Dose: 100 mg Documented by: Estradiol (Estradiol 1 Mg Tablet) 0.5 mg PO DAILY [facility] Last Admin: 02/13/21 08:31 Dose: 0.5 mg Documented by: Furosemide (Furosemide 40 Mg/4 Ml Vial) 40 mg IV BIDD [facility] Last Admin: 02/13/21 08:28 Dose: 40 mg Documented by: Guaifenesin (Guaifenesin/Dextromethorphan Oral Hollie) 10 ml PO Q4HP PRN PRN Reason: Cough Heparin Sodium (Porcine) (Heparin 5,000 Unit/Ml Vial) 5,000 unit SQ Q12 [facility] Last Admin: 02/13/21 08:27 Dose: 5,000 unit Documented by: Hydralazine HCl (Hydralazine 25 Mg Tablet) 50 mg PO TID [facility] Last Admin: 02/13/21 08:29 Dose: 50 mg Documented by: Hyoscyamine (Hyoscyamine Sulfate 0.125 Mg Tablet) 0.125 mg SL TID [facility] Last Admin: 02/13/21 10:19 Dose: 0.125 mg Documented by: Azithromycin 500 mg/ Dextrose 250 mls @ 250 mls/hr IV DAILY [facility]; Protocol Stop: 02/14/21 09:59 Last Admin: 02/13/21 10:18 Dose: 250 mls/hr Documented by: Ipratropium [place] (Ipratropium 0.06% Nasal [place] Bottle 30ml) 2 spray RAUL TIDP PRN PRN Reason: allergy symptoms Levothyroxine Sodium (Levothyroxine 100 Mcg Tablet) 100 mcg PO ACB [facility] Last Admin: 02/13/21 08:30 Dose: 100 mcg Documented by: Lorazepam (Lorazepam 1 Mg Tablet) 1 mg PO HSP PRN PRN Reason: insomnia Metoprolol Succinate (Metoprolol Succinate 25 Mg Tab.Xl.24h) 25 mg PO QDAY [facility] Last Admin: 02/13/21 08:29 Dose: 25 mg Documented by: Nitroglycerin (Nitroglycerin 0.4 Mg Tab.Subl) 0.4 mg SL Q5M PRN PRN Reason: Chest Pain Ondansetron HCl (Ondansetron 4 Mg/2 Ml Vial) 4 mg IV Q6HP PRN PRN Reason: Nausea And Vomiting Sildenafil (Pulm. Hypertension) 20 Mg Tablet 1 dose PO TID [facility] Last Admin: 02/13/21 10:40 Dose: Not Given Documented by: Prednisone (Prednisone 1 Mg Tablet) 4 mg PO [facility] Last Admin: 02/13/21 08:29 Dose: 4 mg Documented by: Senna (Sennosides 1 Tablet) 2 tab PO HS [facility] Sodium Chloride (0.9 % Sodium Chloride 10 Ml Syringe) 10 ml IV Q8 [facility] Last Admin: 02/13/21 05:25 Dose: 10 ml Documented by: Vitamin D (Vitamin D3 1,000 Unit Tablet) 1,000 unit PO DAILY [facility] Last Admin: 02/13/21 08:31 Dose: 1,000 unit Documented by: Zolpidem Tartrate (Zolpidem 5 Mg Tablet) 5 mg PO HSP PRN PRN Reason: Insomnia A/P Assessment and plan (1) Hypothyroidism, acquired: Status: Chronic (2) Hyperlipidemia: Status: Chronic Qualifiers: Hyperlipidemia type: mixed hyperlipidemia Qualified Code(s): E78.2 - Mixed hyperlipidemia (3) Essential hypertension: Status: Chronic (4) Stage 2 acute kidney injury: Status: Acute (5) Chronic kidney disease, stage 3: Status: Acute (6) Pleural effusion: Status: Chronic Comment: left (7) Pulmonary HTN: Status: Acute Comment: Suspect PFO and intracardiac shunt has caused pulmonary HTN. Defer to Dr Johnson on what, if anything can be done. Avoid IV contrast. No evidence or Hx of prior drug use associated with pulmonary HTN, Pulmonary emboli, smoking etc. (8) CHF exacerbation: Status: Acute (9) Bladder mass: Status: Chronic Comment: See below. Will be difficult to biopsy due to recent Left main BHAVYA. Cysto and brushings and urine cytology (10) On home oxygen therapy: Status: Acute (11) Acute on chronic respiratory failure with hypoxemia: Status: Acute (12) CAD (coronary artery disease): Status: Chronic Narrative A/P Narrative: Assessment and plan: 1. Acute on chronic respiratory failure with hypoxemia secondary to diastolic CHF exacerbations with associated bilateral pleural effusions: Stays in inpatient MedSur with telemetry Intake and output Daily weight 2 L/day fluid restriction Lasix 40 mg IV twice daily Metoprolol ER Consider adding LUPE inhibitor or ARB when kidney function improved Aldactone currently not indicated given preserved LVEF Oxygen therapy titrate to achieve SPO2 greater than or equal to 92% #2 moderate aortic stenosis: Continue symptomatic control 3. Pulmonary hypertension: Continue sildenafil Continue diltiazem Continue prednisone Oxygen therapy titrate to achieve SPO2 greater than or equal to 92% #4 history of CAD status post stenting: Aspirin Plavix Statin #5 history of essential hypertension's: Currently normotensive Continue beta-lorena, diltiazem, as well as diuretics #6 mixed dyslipidemia: Continue statin therapy next #7 hypothyroidism: Continue thyroid replacement therapy #8 acute on chronic kidney injury: Avoid nephrotoxic agents such as LUPE inhibitor or ARB Lasix IV CMP in the morning to trend kidney functions #9 bladder mass: Will notify urologist Dr. Leo inpatient versus outpatient management #10 community-acquired pneumonia: Blood culture Consider repeat chest x-ray in a few days Rocephin Zithromax Tylenol as needed fever Robitussin DM as needed cough DuoNeb nebs as needed wheezing Covid PCR to rule out Covid pneumonia-->negative for CoVID pneumonia GI prophylaxis: Not currently indicated DVT prophylaxis: Heparin CODE STATUS: Full code Prognosis: Guarded Dispositions: Inpatient MedSurg with telemetry Time Spent With Patient Time: Total time spent is greater than 50% in coordination of care (as documented) at patient's floor/unit and/or counseling patient: Total time spent with greater than 50% in coordination of care (as documented) at patient's floor/unit and/or counseling patient:: Greater than 35 minutes
[2021-02-13] MEDS ORDERED: SENNOSIDES 1 TABLET PO SCH (21:00)
[2021-02-13] MEDS: LORazepam 1 MG TABLET PO PRN (21:35)
[2021-02-13] MEDS: SENNOSIDES 1 TABLET PO SCH (21:40)
[2021-02-13] MEDS ORDERED: cefTRIAXone 1 GM in DEXTROSE 5% IN WATER 50 ML IV SCH (23:21)
[2021-02-14] MEDS: ACETAMINOPHEN 325 MG TABLET PO PRN (02:48)
[2021-02-14] MEDS: LEVOTHYROXINE 100 MCG TABLET PO SCH (07:24)
[2021-02-14] MEDS: 0.9 % SODIUM CHLORIDE 10 ML SYRINGE IV SCH ×3 (07:24→20:20)
[2021-02-14 08:00] LABS: ALT/SGPT 14 U/L (<40); AST/SGOT 24 U/L (<32); Albumin 2.8 gm/dL (3.2-5.2); Albumin/Globulin Ratio 0.8 (1.0-2.3); Alkaline Phosphatase 72 U/L (39-117); Bilirubin,Total 0.4 mg/dL (0.1-1.0); Blood Urea Nitrogen 51 mg/dL (8-23); Calcium 8.4 mg/dL (8.6-10.4); Carbon Dioxide 22 mmol/L (22-30); Chloride 98 mmol/L (96-108); Globulin 3.6 gm/dL (2.2-3.7); Glomerular Filtration Rate 20; Glucose 81 mg/dL (70-105)
[2021-02-14] MEDS: AZITHROMYCIN 500 MG in DEXTROSE 5% IN WATER 250 ML IV SCH (09:00)
[2021-02-14] MEDS: SILDENAFIL 20 MG PO SCH ×3 (09:00→20:19)
[2021-02-14] MEDS: HEPARIN 5,000 UNIT/ML VIAL SQ SCH ×2 (09:00→20:18)
[2021-02-14] MEDS: HYOSCYAMINE SULFATE 0.125 MG TABLET SL SCH ×3 (09:00→20:19)
[2021-02-14] MEDS: FUROSEMIDE 40 MG/4 ML VIAL IV SCH (09:01)
[2021-02-14] MEDS: hydrALAZINE 25 MG TABLET PO SCH ×3 (09:01→20:19)
[2021-02-14] MEDS: VITAMIN D3 1,000 UNIT TABLET PO SCH (09:01)
[2021-02-14] MEDS: cefTRIAXone 1 GM VIAL IV SCH (09:01)
[2021-02-14] MEDS: ESTRADIOL 1 MG TABLET PO SCH (09:02)
[2021-02-14] MEDS: METOPROLOL SUCCINATE 25 MG TAB.XL.24H PO SCH (09:02)
[2021-02-14] MEDS: ASPIRIN 81 MG TAB.CHEW PO SCH (09:02)
[2021-02-14] MEDS: CLOPIDOGREL 75 MG TABLET PO SCH (09:02)
[2021-02-14] MEDS: DILTIAZEM 240 MG CAP.XL.24H PO SCH (09:02)
[2021-02-14] MEDS: ATORVASTATIN 40 MG TABLET PO SCH (09:02)
[2021-02-14] MEDS: DOCUSATE SODIUM 100 MG CAPSULE PO SCH ×2 (09:03→20:20)
[2021-02-14] MEDS: predniSONE 1 MG TABLET PO SCH (09:15)
[2021-02-14] MEDS ORDERED: BENZOCAINE/MENTHOL 1 LOZENGE PO PRN (11:59)
--- NOTE | 2021-02-14 12:06 | Internal Med Progress Note ---
SUBJECTIVE Subjective Patient information: Note initiated : 02/14/21 at 12:01 pm Service Date, if different from initiated Date: [] Patient: Holly Hernandez a 85 y/o F admitted on 02/12/21 for Shortness of Breath. Chief Complaint: [CHF exacerbation] Interval history: History of present illness: Ms. Hernandez is a 85 year old F CAD status post stenting, CHF, pulmonary hypertension, chronic kidney disease stage III, hypothyroidism, home oxygen therapy, presenting with 1 day history of acute on chronic respiratory failure. She used home oxygen up to 2 L for good days and even more for bad days according to . Today she had a routine appointment with her reservations clerk and there is no change of her cardiac medications. She had increasing degree of shortness of breath after the appointment to the point that she increased her oxygen to 4 L but still felt short of breath. Patient is otherwise unable to provide much details of her symptoms such as whether or not she has cough, wheezing, chest pain, fever or chills, unintentional weight gain, leg swellings, etc. patient presented to our ED for further evaluations for worsening shortness of breath. Vital signs significant for oxygen saturations in the high 80s on 2 L of supplemental oxygen's. Rest of the vital signs within normal limits. Labs significant for leukocytosis with WBC 17.1. BNP elevated to 17,000. Serum troponin 0.03. Serum creatinine 2.6 with baseline 1.3. Chest x-ray showing bilateral moderate to severe pleural effusion as well as moderate bibasilar atelectasis versus infiltrate. 02/13: Low-grade fever with T-max 37.7 overnight. Oxygen requirement up to 6 L/min overnight and currently she is on 4 L/min. She is committing of mild shortness of breath. She denies any cough or sputum productions. She denies any wheezing. She denies any fever or chills. She is complaining of constipations. She is committing of general body weakness. 02/14: Afebrile overnight. Oxygen requirement up to 5 L/min overnight and currently she is on 2 L/min (baseline). Blood and urine cultures no growth to date. Denies SOB. Denies cough or sputum production or wheezing. c/o general body weakness. c/o poor appetite. c/o sore throat. Has 6 bowel movements overnight. Constitutional Vitals: Vital Signs Temp Pulse Resp BP Pulse Ox 36.8 C 78 18 113/51 96 02/14/21 11:18 02/14/21 11:18 02/14/21 11:18 02/14/21 11:18 02/14/21 11:18 Period Temp Pulse Resp BP Sys/Diaz Pulse Ox Last 24 Hr 36.4 C-37.1 C 70-80 16-22 105-139/49-68 89-96 Intake and Output 02/13/21 02/14/21 02/14/21 21:59 05:59 13:59 Intake Total 480 420 Output Total 400 Balance 480 20 Weight 50.439 kg Intake & Output: Intake & Output 02/13/21 02/14/21 02/14/21 21:59 05:59 13:59 Intake Total 480 420 Output Total 400 Balance 480 20 Weight 50.439 kg Intake: Oral 480 420 Output: Urine/Stool Mix 400 Other: Meal Breakfast Percent of Meal Consumed 50% Feeding Ability Independent Stool Size Moderate Moderate Stool Color Brown Stool Consistency Liquid Loose Watery Loose # Voids 1 # Bowel Movements 2 # of times incontinent of 1 Bowels General appearance: cooperative and no acute distress Head Head exam: Present atraumatic and normocephalic Eye Eye exam: Present EOMI and PERRL ENT ENT exam: Present mucous membranes moist, normal exam and normal external ear exam Additional comments: Nasal cannula in place Neck Neck exam: Present normal inspection; Absent lymphadenopathy, tenderness and thyromegaly Respiratory Respiratory exam: Present rhonchi; Absent accessory muscle use, respiratory distress and wheezes Cardiovascular Cardiovascular exam: Present normal rate and rhythm; Absent JVD GI/Abdominal GI/Abdominal exam: Present normal bowel sounds and soft; Absent organomegaly and tenderness Extremities Exam Extremities exam: Present full ROM, normal capillary refill and normal inspection; Absent tenderness Neurological Exam Neurological exam: Present alert, CN II-XII intact and oriented X3; Absent motor sensory deficit Psychiatric Psychiatric exam: Present normal affect and normal mood; Absent anxious and depressed Skin Skin exam: Present dry and intact OBJ DATA Labs CBC & Chem 7: 02/13/21 03:15 02/14/21 05:19 Labs: Abnormal Lab Results 02/14/21 02/13/21 02/13/21 05:19 03:15 03:15 WBC 13.9 H RBC 2.72 L Hgb 8.6 L Hct 27.1 L POC Hct RDW 17.1 H Plt Count 120 L MPV 11.8 H Neut % (Auto) 79.7 H Lymph % (Auto) 11.4 L [place] # (Auto) 1.15 H Absolute Neutrophils 11.11 H POC Total CO2 Anion Gap 18.0 H POC BUN BUN 51 H 54 H Creatinine 2.2 H 2.5 H POC Creatinine POC Glucose Calcium 8.4 L 8.4 L POC WB Ioniz Calcium Troponin T NT-Pro-B Natriuret Pep Albumin 2.8 L 3.1 L Albumin/Globulin Ratio 0.8 L 0.9 L 02/12/21 02/12/21 02/12/21 17:21 17:21 17:21 WBC 17.1 H RBC 3.30 L Hgb 10.2 L Hct 30.7 L POC Hct 33 L RDW 16.8 H Plt Count MPV Neut % (Auto) 83.3 H Lymph % (Auto) 9.8 L [place] # (Auto) 1.12 H Absolute Neutrophils 14.20 H POC Total CO2 21 L Anion Gap POC BUN 47 H BUN Creatinine POC Creatinine 2.6 H POC Glucose 114 H Calcium POC WB Ioniz Calcium 1.08 L Troponin T 0.03 H NT-Pro-B Natriuret Pep 75004.0 H Albumin Albumin/Globulin Ratio Meds: Medications Acetaminophen (Acetaminophen 325 Mg Tablet) 650 mg PO Q6HP PRN; Protocol PRN Reason: Per Pain Protocol/Fever > 101 Last Admin: 02/14/21 02:48 Dose: 650 mg Documented by: Albuterol/Ipratropium (Ipratropium/Albuterol 3 Ml Ampul.Neb) 3 ml NEB Q4HRT PRN PRN Reason: Wheezing Aspirin (Aspirin 81 Mg Tab.Chew) 81 mg PO DAILY [facility] Last Admin: 02/14/21 09:02 Dose: 81 mg Documented by: Atorvastatin Calcium (Atorvastatin 40 Mg Tablet) 40 mg PO DAILY [facility] Last Admin: 02/14/21 09:02 Dose: 40 mg Documented by: Ceftriaxone Sodium (Ceftriaxone 1 Gm Vial) 1 gm IV DAILY [facility] Last Admin: 02/14/21 09:01 Dose: 1 gm Documented by: Clopidogrel Bisulfate (Clopidogrel 75 Mg Tablet) 75 mg PO QDAY [facility] Last Admin: 02/14/21 09:02 Dose: 75 mg Documented by: Diltiazem HCl (Diltiazem 240 Mg Cap.Xl.24h) 240 mg PO QAM [facility] Last Admin: 02/14/21 09:02 Dose: 240 mg Documented by: Docusate Sodium (Docusate Sodium 100 Mg Capsule) 100 mg PO BID [facility] Last Admin: 02/14/21 09:03 Dose: Not Given Documented by: Estradiol (Estradiol 1 Mg Tablet) 0.5 mg PO DAILY [facility] Last Admin: 02/14/21 09:02 Dose: 0.5 mg Documented by: Furosemide (Furosemide 40 Mg Tablet) 40 mg PO BIDD [facility] Guaifenesin (Guaifenesin/Dextromethorphan Oral Hollie) 10 ml PO Q4HP PRN PRN Reason: Cough Heparin Sodium (Porcine) (Heparin 5,000 Unit/Ml Vial) 5,000 unit SQ Q12 [facility] Last Admin: 02/14/21 09:00 Dose: 5,000 unit Documented by: Hydralazine HCl (Hydralazine 25 Mg Tablet) 50 mg PO TID [facility] Last Admin: 02/14/21 09:01 Dose: 50 mg Documented by: Hyoscyamine (Hyoscyamine Sulfate 0.125 Mg Tablet) 0.125 mg SL TID [facility] Last Admin: 02/14/21 09:00 Dose: 0.125 mg Documented by: Ipratropium [place] (Ipratropium 0.06% Nasal [place] Bottle 30ml) 2 spray RAUL TIDP PRN PRN Reason: allergy symptoms Levothyroxine Sodium (Levothyroxine 100 Mcg Tablet) 100 mcg PO ACB [facility] Last Admin: 02/14/21 07:24 Dose: 100 mcg Documented by: Lorazepam (Lorazepam 1 Mg Tablet) 1 mg PO HSP PRN PRN Reason: insomnia Last Admin: 02/13/21 21:35 Dose: 0.5 mg Documented by: Metoprolol Succinate (Metoprolol Succinate 25 Mg Tab.Xl.24h) 25 mg PO QDAY [facility] Last Admin: 02/14/21 09:02 Dose: 25 mg Documented by: Nitroglycerin (Nitroglycerin 0.4 Mg Tab.Subl) 0.4 mg SL Q5M PRN PRN Reason: Chest Pain Ondansetron HCl (Ondansetron 4 Mg/2 Ml Vial) 4 mg IV Q6HP PRN PRN Reason: Nausea And Vomiting Sildenafil (Pulm. Hypertension) 20 Mg Tablet 1 dose PO TID [facility] Last Admin: 02/14/21 09:00 Dose: 1 dose Documented by: Prednisone (Prednisone 1 Mg Tablet) 4 mg PO QAC [facility] Last Admin: 02/14/21 09:15 Dose: 4 mg Documented by: Senna (Sennosides 1 Tablet) 2 tab PO HS [facility] Last Admin: 02/13/21 21:40 Dose: Not Given Documented by: Sodium Chloride (0.9 % Sodium Chloride 10 Ml Syringe) 10 ml IV Q8 [facility] Last Admin: 02/14/21 07:24 Dose: 10 ml Documented by: Throat Lozenges (Benzocaine/Menthol 1 Lozenge) 1 lozenge PO PRN PRN PRN Reason: Sore Throat Vitamin D (Vitamin D3 1,000 Unit Tablet) 1,000 unit PO DAILY [facility] Last Admin: 02/14/21 09:01 Dose: 1,000 unit Documented by: Zolpidem Tartrate (Zolpidem 5 Mg Tablet) 5 mg PO HSP PRN PRN Reason: Insomnia A/P Assessment and plan (1) Hypothyroidism, acquired: Status: Chronic (2) Hyperlipidemia: Status: Chronic Qualifiers: Hyperlipidemia type: mixed hyperlipidemia Qualified Code(s): E78.2 - Mixed hyperlipidemia (3) Essential hypertension: Status: Chronic (4) Stage 2 acute kidney injury: Status: Acute (5) Chronic kidney disease, stage 3: Status: Acute (6) Pleural effusion: Status: Chronic Comment: left (7) Pulmonary HTN: Status: Acute Comment: Suspect PFO and intracardiac shunt has caused pulmonary HTN. Defer to Dr Johnson on what, if anything can be done. Avoid IV contrast. No evidence or Hx of prior drug use associated with pulmonary HTN, Pulmonary emboli, smoking etc. (8) CHF exacerbation: Status: Acute (9) Bladder mass: Status: Chronic Comment: See below. Will be difficult to biopsy due to recent Left main BHAVYA. Cysto and brushings and urine cytology (10) On home oxygen therapy: Status: Acute (11) Acute on chronic respiratory failure with hypoxemia: Status: Acute (12) CAD (coronary artery disease): Status: Chronic Narrative A/P Narrative: Assessment and plan: 1. Acute on chronic respiratory failure with hypoxemia secondary to diastolic CHF exacerbations with associated bilateral pleural effusions: Stays in inpatient MedSurg with telemetry Intake and output Daily weight 2 L/day fluid restriction Lasix 40 mg PO twice daily Metoprolol ER Consider adding LUPE inhibitor or ARB when kidney function improved Aldactone currently not indicated given preserved LVEF Oxygen therapy titrate to achieve SPO2 greater than or equal to 92% #2 moderate aortic stenosis: Continue symptomatic control 3. Pulmonary hypertension: Continue sildenafil Continue diltiazem Continue prednisone Oxygen therapy titrate to achieve SPO2 greater than or equal to 92% #4 history of CAD status post stenting: Aspirin Plavix Statin #5 history of essential hypertension's: Currently normotensive Continue beta-lorena, diltiazem, as well as diuretics #6 mixed dyslipidemia: Continue statin therapy next #7 hypothyroidism: Continue thyroid replacement therapy #8 acute on chronic kidney injury: Avoid nephrotoxic agents such as LUPE inhibitor or ARB Lasix 40mg PO BID CMP in the morning to trend kidney functions #9 bladder mass: Will notify urologist Dr. Leo inpatient versus outpatient management #10 community-acquired pneumonia: Blood culture, no growth to date Consider repeat chest x-ray in a few days Rocephin Zithromax Tylenol as needed fever Robitussin DM as needed cough DuoNeb nebs as needed wheezing Covid PCR to rule out Covid pneumonia-->negative for CoVID pneumonia GI prophylaxis: Not currently indicated DVT prophylaxis: Heparin CODE STATUS: Full code Prognosis: Stable Dispositions: Inpatient MedSurg with telemetry Time Spent With Patient Time: Total time spent is greater than 50% in coordination of care (as documented) at patient's floor/unit and/or counseling patient:
[2021-02-14 12:09] LABS: Basophils # (Auto) 0.03 K/mcL (0.00-0.30); Basophils % (Auto) 0.3 % (0.0-2.0); Eosinophils % (Auto) 0.9 % (0.0-7.0); Hematocrit 27.4 % (34.1-44.9); Mean Cell Volume 94.8 fL (80.0-100.0); Mean Corpuscular HGB Conc 32.8 g/dL (31.0-36.0); Mean Platelet Volume 10.4 fL (7.4-10.4); Monocytes # (Auto) 0.81 K/mcL (0.10-0.90); Monocytes % (Auto) 6.9 % (1.0-12.0); Neutrophils % (Auto) 79.9 % (38.0-78.0); Platelet Count 140 K/mcL (140-440); RBC 2.89 M/mcL (3.59-5.38); Red Cell Distribution Width 16.3 % (11.5-14.5); WBC 11.7 K/mcL (4.5-11.0)
[2021-02-14] MEDS: FUROSEMIDE 40 MG TABLET PO SCH (16:01)
--- NOTE | 2021-02-14 17:50 | EKG ---
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 Electronically Signed On 02-14-2021 17:50:08 PDT by Brett Joseph /store/M0/[id number]
[2021-02-14] MEDS: LORazepam 1 MG TABLET PO PRN (20:19)
[2021-02-14] MEDS: SENNOSIDES 1 TABLET PO SCH (20:20)
[2021-02-15] MEDS: 0.9 % SODIUM CHLORIDE 10 ML SYRINGE IV SCH ×3 (05:15→18:30)
[2021-02-15 07:10] LABS: Basophils # (Auto) 0.03 K/mcL (0.00-0.30); Basophils % (Auto) 0.3 % (0.0-2.0); Eosinophils # (Auto) 0.09 K/mcL (0.00-0.70); Eosinophils % (Auto) 0.9 % (0.0-7.0); Hematocrit 27.9 % (34.1-44.9); Hemoglobin 9.1 g/dL (11.2-15.7); Lymphocytes # (Auto) 1.63 K/mcL (1.50-4.80); Lymphocytes % (Auto) 15.7 % (15.5-49.0); Mean Corpuscular HGB Conc 32.6 g/dL (31.0-36.0); Mean Platelet Volume 10.4 fL (7.4-10.4); Monocytes # (Auto) 0.74 K/mcL (0.10-0.90); Monocytes % (Auto) 7.1 % (1.0-12.0); Platelet Count 165 K/mcL (140-440); WBC 10.4 K/mcL (4.5-11.0)
[2021-02-15] MEDS: LEVOTHYROXINE 100 MCG TABLET PO SCH (07:29)
[2021-02-15] MEDS: predniSONE 1 MG TABLET PO SCH (07:29)
[2021-02-15] MEDS: FUROSEMIDE 40 MG TABLET PO SCH ×2 (07:29→16:05)
[2021-02-15 08:08] LABS: ALT/SGPT 14 U/L (<40); AST/SGOT 28 U/L (<32); Albumin/Globulin Ratio 0.8 (1.0-2.3); Alkaline Phosphatase 69 U/L (39-117); Bilirubin,Total 0.3 mg/dL (0.1-1.0); Blood Urea Nitrogen 56 mg/dL (8-23); Calcium 8.4 mg/dL (8.6-10.4); Carbon Dioxide 26 mmol/L (22-30); Chloride 92 mmol/L (96-108); Globulin 3.6 gm/dL (2.2-3.7); Glomerular Filtration Rate 16; Glucose 82 mg/dL (70-105)
[2021-02-15] MEDS: cefTRIAXone 1 GM VIAL IV SCH (08:34)
[2021-02-15] MEDS: SILDENAFIL 20 MG PO SCH ×3 (08:34→21:03)
[2021-02-15] MEDS: hydrALAZINE 25 MG TABLET PO SCH ×3 (08:37→21:02)
[2021-02-15] MEDS: VITAMIN D3 1,000 UNIT TABLET PO SCH (08:40)
[2021-02-15] MEDS: ATORVASTATIN 40 MG TABLET PO SCH (08:40)
[2021-02-15] MEDS: DILTIAZEM 240 MG CAP.XL.24H PO SCH (08:40)
[2021-02-15] MEDS: CLOPIDOGREL 75 MG TABLET PO SCH (08:40)
[2021-02-15] MEDS: ASPIRIN 81 MG TAB.CHEW PO SCH (08:40)
[2021-02-15] MEDS: METOPROLOL SUCCINATE 25 MG TAB.XL.24H PO SCH (08:40)
[2021-02-15] MEDS: ESTRADIOL 1 MG TABLET PO SCH (08:40)
[2021-02-15] MEDS: HEPARIN 5,000 UNIT/ML VIAL SQ SCH ×2 (08:45→21:03)
[2021-02-15] MEDS: DOCUSATE SODIUM 100 MG CAPSULE PO SCH ×2 (08:45→21:04)
[2021-02-15] MEDS: HYOSCYAMINE SULFATE 0.125 MG TABLET SL SCH ×3 (08:46→21:04)
[2021-02-15] MEDS ORDERED: POTASSIUM CHLORIDE 20 MEQ TABLET PO ONE (11:29)
--- NOTE | 2021-02-15 13:14 | Discharge Summary ---
Discharge Provider Provider Patient information: Note initiated : 02/15/21 at 1:10 pm Service Date, if different from initiated Date: [] Patient: Holly Hernandez a 85 y/o F admitted on 02/12/21 for Shortness of Breath. Chief Complaint: [CHF exacerbation] History of present illness: Ms. Hernandez is a 85 year old F CAD status post stenting, CHF, pulmonary hypertension, chronic kidney disease stage III, hypothyroidism, home oxygen therapy, presenting with 1 day history of acute on chronic respiratory failure. She used home oxygen up to 2 L for good days and even more for bad days according to . Today she had a routine appointment with her results technician and there is no change of her cardiac medications. She had increasing degree of shortness of breath after the appointment to the point that she increased her oxygen to 4 L but still felt short of breath. Patient is otherwise unable to provide much details of her symptoms such as whether or not she has cough, wheezing, chest pain, fever or chills, unintentional weight gain, leg swellings, etc. patient presented to our ED for further evaluations for worsening shortness of breath. Vital signs significant for oxygen saturations in the high 80s on 2 L of supplemental oxygen's. Rest of the vital signs within normal limits. Labs significant for leukocytosis with WBC 17.1. BNP elevated to 17,000. Serum troponin 0.03. Serum creatinine 2.6 with baseline 1.3. Chest x-ray showing bilateral moderate to severe pleural effusion as well as moderate bibasilar atelectasis versus infiltrate. Date of admission: 02/12/21 23:15 Discharge date: 02/15/21 Primary care physician: David Ríos Consults: 02/12/21 Consult to Physician [CONS] Stat Comment: Consulting Provider: Krishna Hinojosa Reason For Exam: Physician to Consult Discharge Meds Discharge Medications Home Medications ipratropium bromide 42 mcg (0.06 %) nasal spray 2 spray INTRANASAL TID PRN #45 ml 06/27/17 [Rx Confirmed 02/05/21 Last Taken Unknown] lorazepam 1 mg tablet 1 mg PO QHS PRN #90 tab 09/28/17 [Rx Confirmed 02/05/21 Last Taken Unknown] Massage therapy #12 each 12/14/17 [Rx Confirmed 01/18/21 Last Taken Unknown] estradiol 0.5 mg tablet 0.5 mg PO QDAY #90 tab 12/14/17 [Rx Confirmed 02/05/21 Last Taken Unknown] clopidogrel 75 mg tablet 75 mg PO QDAY #90 tab 02/19/18 [Rx Confirmed 02/05/21 Last Taken Unknown] aspirin 81 mg tablet,delayed release 81 mg PO QAM tab 12/10/20 [History Confirmed 02/05/21 Last Taken Unknown] atorvastatin 80 mg tablet 40 mg PO QDAY tab 12/10/20 [History Confirmed 02/13/21 Last Taken Unknown] cholecalciferol (vitamin D3) 25 mcg (1,000 unit) capsule 25 mcg PO QAM cap 12/10/20 [History Confirmed 02/05/21 Last Taken Unknown] levothyroxine 100 mcg tablet 100 mcg PO QDAY tab 01/13/21 [History Confirmed 02/05/21 Last Taken Unknown] prochlorperazine maleate 5 mg tablet 5 mg PO Q6H PRN tab 01/13/21 [History Confirmed 02/05/21 Last Taken Unknown] sildenafil (pulm.hypertension) 20 mg tablet 20 mg PO TID tab 01/13/21 [History Confirmed 02/05/21 Last Taken Unknown] hydralazine 50 mg tablet 50 mg PO TID #300 tab 01/25/21 [Rx Confirmed 02/13/21 Last Taken Unknown] hyoscyamine sulfate 0.125 mg SUBLINGUAL TID 02/05/21 [History Confirmed 02/05/21 Last Taken Unknown] metoprolol succinate 25 mg PO QDAY 02/05/21 [History Confirmed 02/13/21 Last Taken Unknown] nitroglycerin [Nitrostat] 0.4 mg SUBLINGUAL Q5M PRN 02/05/21 [History Confirmed 02/05/21 Last Taken Unknown] prednisone 4 mg PO QDAY 02/05/21 [History Confirmed 02/13/21 Last Taken Unknown] sodium chloride 1,000 mg PO TID 02/05/21 [History Confirmed 02/05/21 Last Taken Unknown] diltiazem HCl 240 mg PO QAM 02/12/21 [History Confirmed 02/13/21 Last Taken Unknown] ondansetron 4 mg PO Q6H PRN 02/12/21 [History Confirmed 02/13/21 Last Taken Unknown] amoxicillin-pot clavulanate [Augmentin] 1 tab PO BID 3 Days #6 tab 02/15/21 [Rx Last Taken Unknown] benzocaine-menthol [Cepacol Sore Throat (roselyn-men)] 1 tim PO PRN PRN #20 ea 02/15/21 [Rx Last Taken Unknown] dextromethorphan-guaifenesin [Robafen DM Cough] 10 ml PO Q4HP PRN #250 ml 02/15/21 [Rx Last Taken Unknown] furosemide 20 mg PO BIDD #30 tab 02/15/21 [Rx Last Taken Unknown] potassium chloride [Klor-Con M20] 20 meq PO BIDCC #14 tab 02/15/21 [Rx Last Taken Unknown] COURSE Hospital Course Hospital course: History of present illness: Ms. Hernandez is a 85 year old F CAD status post stenting, CHF, pulmonary hypertension, chronic kidney disease stage III, hypothyroidism, home oxygen therapy, presenting with 1 day history of acute on chronic respiratory failure. She used home oxygen up to 2 L for good days and even more for bad days according to . Today she had a routine appointment with her results technician and there is no change of her cardiac medications. She had increasing degree of shortness of breath after the appointment to the point that she increased her oxygen to 4 L but still felt short of breath. Patient is otherwise unable to provide much details of her symptoms such as whether or not she has cough, wheezing, chest pain, fever or chills, unintentional weight gain, leg swellings, etc. patient presented to our ED for further evaluations for worsening shortness of breath. Vital signs significant for oxygen saturations in the high 80s on 2 L of supplemental oxygen's. Rest of the vital signs within normal limits. Labs significant for leukocytosis with WBC 17.1. BNP elevated to 17,000. Serum troponin 0.03. Serum creatinine 2.6 with baseline 1.3. Chest x-ray showing bilateral moderate to severe pleural effusion as well as moderate bibasilar atelectasis versus infiltrate. Discharge diagnosis: CHF exacerbation, Pneumonia Time Spent with Patient Time attestation: Total time spent providing and/or coordinating discharge services: Patient was admitted on February 12, 2021 for shortness of breath secondary to diastolic CHF exacerbations. She was started on supplemental oxygen therapy, aggressive diuretic therapy with IV Lasix, metoprolol extended release, as well as fluid restrictions. No LUPE inhibitors or ARB were given due to acute kidney injury. She was also being treated for community-acquired pneumonia with empiric antibiotics Rocephin and Zithromax and blood culture has been no growth to date. By February 15, 2001, patient's oxygen requirement went back to her baseline level, afebrile for more than 24 hours, and the leukocytosis resolved, and thus reaching clinical stability. As such, the decision was made to discharge patient home with 1 weeks PCP follow-up made for her, prescription sent to pharmacy, and or questions answered prior to patient being physically discharged. EXAM Constitutional Vitals: Temp Pulse Resp BP Pulse Ox 36.7 C 74 22 118/63 93 02/15/21 12:00 02/15/21 12:00 02/15/21 12:00 02/15/21 12:02/15/21 12:00 General appearance: cooperative and no acute distress Head Head exam: Present atraumatic and normocephalic Eye Eye exam: Present EOMI and PERRL ENT ENT exam: Present mucous membranes moist, normal exam and normal external ear exam Additional comments: nasal cannula in place Neck Neck exam: Present normal inspection; Absent lymphadenopathy, tenderness and thyromegaly Respiratory Respiratory exam: Present rhonchi; Absent accessory muscle use, respiratory distress and wheezes Cardiovascular Cardiovascular exam: Present normal rate and rhythm; Absent JVD GI/Abdominal GI/Abdominal exam: Present normal bowel sounds and soft; Absent organomegaly and tenderness Extremities Exam Extremities exam: Present full ROM, normal capillary refill and normal inspection; Absent tenderness Neurological Exam Neurological exam: Present alert, CN II-XII intact and oriented X3; Absent motor sensory deficit Psychiatric Psychiatric exam: Present normal affect and normal mood; Absent anxious and depressed Skin Skin exam: Present dry and intact Discharge Data Data Completed and Pending Labs on day of discharge: Labs from last 24 hours 02/15/21 02/15/21 05:11 05:11 WBC 10.4 RBC 3.00 L Hgb 9.1 L Hct 27.9 L MCV 93.0 MCH 30.3 MCHC 32.6 RDW 16.0 H Plt Count 165 MPV 10.4 Neut % (Auto) 76.0 Lymph % (Auto) 15.7 Wolfe % (Auto) 7.1 Eos % (Auto) 0.9 Baso % (Auto) 0.3 Lymph # (Auto) 1.63 Wolfe # (Auto) 0.74 Eos # (Auto) 0.09 Baso # (Auto) 0.03 Absolute Neutrophils 7.92 Sodium 132 L Potassium 3.0 L Chloride 92 L Carbon Dioxide 26 Anion Gap 14.0 BUN 56 H Creatinine 2.6 H GFR Calculation 16 Glucose 82 Calcium 8.4 L Total Bilirubin 0.3 AST 28 ALT 14 Alkaline Phosphatase 69 Total Protein 6.6 Albumin 3.0 L Globulin 3.6 Albumin/Globulin Ratio 0.8 L Preliminary micro results at discharge 02/12/21 03:15 Blood Culture - Preliminary Blood 02/12/21 00:35 Blood Culture - Preliminary Blood Discharge Plan Patient/Caregiver Discharge Instructions Activity: increase activity as tolerated Diet: Renal Prescriptions: New furosemide 40 mg Tablet 20 mg PO BIDD Qty: 30 RF: 0 dextromethorphan-guaifenesin [Robafen DM Cough] 10-100 mg/5 mL Liquid 10 ml PO Q4HP PRN (Reason: Cough) Qty: 250 RF: 0 potassium chloride [Klor-Con M20] 20 mEq Tablet,Er Particles/Crystals 20 meq PO BIDCC Qty: 14 RF: 0 Cepacol Sore Throat (roselyn-men) 15-2.6 mg Lozenge 1 tim PO PRN PRN (Reason: Sore Throat) Qty: 20 RF: 0 amoxicillin-pot clavulanate [Augmentin] 875-125 mg tablet 1 tab PO BID 3 Days Qty: 6 RF: 0 Continued ipratropium bromide 42 mcg (0.06 %) spray,non-aerosol 2 spray INTRANASAL TID PRN (Reason: allergy symptoms) Qty: 45 RF: 3 clopidogrel 75 mg tablet 75 mg PO QDAY Qty: 90 RF: 3 hydralazine 50 mg tablet 50 mg PO TID Qty: 300 RF: 3 estradiol 0.5 mg tablet 0.5 mg PO QDAY Qty: 90 RF: 3 lorazepam 1 mg tablet 1 mg PO QHS PRN (Reason: insomnia) Qty: 90 RF: 1 aspirin 81 mg tablet,delayed release (DR/EC) 81 mg PO QAM RF: 0 atorvastatin 80 mg tablet 40 mg PO QDAY RF: 0 cholecalciferol (vitamin D3) 25 mcg (1,000 unit) capsule 25 mcg PO QAM RF: 0 levothyroxine 100 mcg tablet 100 mcg PO QDAY RF: 0 sildenafil (pulm.hypertension) 20 mg tablet 20 mg PO TID RF: 0 prochlorperazine maleate 5 mg tablet 5 mg PO Q6H PRN (Reason: nausea and vomiting) RF: 0 sodium chloride 1 gram Tablet 1,000 mg PO TID RF: 0 hyoscyamine sulfate 0.125 mg tablet, sublingual 0.125 mg sublingual TID RF: 0 nitroglycerin [Nitrostat] 0.4 mg Tablet, Sublingual 0.4 mg SUBLINGUAL Q5M PRN (Reason: Chest Pain) RF: 0 metoprolol succinate 25 mg Tablet Extended Release 24 Hr 25 mg PO QDAY RF: 0 prednisone 5 mg tablet 4 mg PO QDAY RF: 0 diltiazem HCl 240 mg capsule,extended release 24hr 240 mg PO QAM RF: 0 ondansetron 4 mg Tablet,Disintegrating 4 mg PO Q6H PRN (Reason: Nausea) RF: 0 Discontinued cephalexin 500 mg capsule 500 mg PO TID Qty: 15 RF: 0 furosemide 40 mg tablet 20 mg PO QAM RF: 0 No Action (DME) Massage therapy Qty: 12 RF: 0 Follow Up Plan Follow up with: David Ríos MD [Primary Care Provider] - (1 week follow up ) Patient Disposition: Home Health Service Rehab Potential: Good I certify that the patient requires SNF services: No Overall status at discharge: patient is back to baseline Discharge Orders: Discharge Order (Routine); Ordered 02/15/21 Ordered By: Krishna Hinojosa
--- NOTE | 2021-02-15 15:18 | Internal Med Progress Note ---
SUBJECTIVE Subjective Patient information: Note initiated : 02/15/21 at 3:17 pm Service Date, if different from initiated Date: [] Patient: Holly Hernandez a 85 y/o F admitted on 02/12/21 for Shortness of Breath. Chief Complaint: [CHF exacerbation] Interval history: History of present illness: Ms. Hernandez is a 85 year old F CAD status post stenting, CHF, pulmonary hypertension, chronic kidney disease stage III, hypothyroidism, home oxygen therapy, presenting with 1 day history of acute on chronic respiratory failure. She used home oxygen up to 2 L for good days and even more for bad days according to . Today she had a routine appointment with her egg sorter and there is no change of her cardiac medications. She had increasing degree of shortness of breath after the appointment to the point that she increased her oxygen to 4 L but still felt short of breath. Patient is otherwise unable to provide much details of her symptoms such as whether or not she has cough, wheezing, chest pain, fever or chills, unintentional weight gain, leg swellings, etc. patient presented to our ED for further evaluations for worsening shortness of breath. Vital signs significant for oxygen saturations in the high 80s on 2 L of supplemental oxygen's. Rest of the vital signs within normal limits. Labs significant for leukocytosis with WBC 17.1. BNP elevated to 17,000. Serum troponin 0.03. Serum creatinine 2.6 with baseline 1.3. Chest x-ray showing bilateral moderate to severe pleural effusion as well as moderate bibasilar atelectasis versus infiltrate. 02/13: Low-grade fever with T-max 37.7 overnight. Oxygen requirement up to 6 L/min overnight and currently she is on 4 L/min. She is committing of mild shortness of breath. She denies any cough or sputum productions. She denies any wheezing. She denies any fever or chills. She is complaining of constipations. She is committing of general body weakness. 02/14: Afebrile overnight. Oxygen requirement up to 5 L/min overnight and currently she is on 2 L/min (baseline). Blood and urine cultures no growth to date. Denies SOB. Denies cough or sputum production or wheezing. c/o general body weakness. c/o poor appetite. c/o sore throat. Has 6 bowel movements overnight. 02/15: Currently on 2L/min oxygen, baseline. Initially refused to go to [place] [facility] and instead request to go home with home health therapy. When the daughter came, patient's and family changed her mind and now wanting to go to SNF. Constitutional Vitals: Vital Signs Temp Pulse Resp BP Pulse Ox 36.7 C 74 22 118/63 93 02/15/21 12:00 02/15/21 12:00 02/15/21 12:00 02/15/21 12:00 02/15/21 12:00 Period Temp Pulse Resp BP Sys/Diaz Pulse Ox Last 24 Hr 36.3 C-36.9 C 69-85 14-24 91-132/54-65 89-97 Intake and Output 02/15/21 02/15/21 02/15/21 05:59 13:59 21:59 Intake Total 950 Output Total 450 200 Balance -450 750 Intake & Output: Intake & Output 02/15/21 02/15/21 02/15/21 05:59 13:59 21:59 Intake Total 950 Output Total 450 200 Balance -450 750 Intake: IV 250 Zithromax 500 mg In Dextrose 5% 250 in Water 250 ml @ 250 mls/hr IV DAILY [facility] Rx#:[id number] Oral 700 Output: Void Amount 450 200 Other: Meal Breakfast Percent of Meal Consumed 100% Feeding Ability Assist with Tray Set Up Urine Appearance Clear Cloudy Urine Color Bright Yellow Dark Yellow Urine Odor Normal Strong Stool Size Moderate Stool Color Brown Stool Consistency Soft # Bowel Movements 1 General appearance: cooperative and no acute distress Head Head exam: Present atraumatic and normocephalic Eye Eye exam: Present EOMI and PERRL ENT ENT exam: Present mucous membranes moist, normal exam and normal external ear exam Additional comments: Nasal cannula in place Neck Neck exam: Present normal inspection; Absent lymphadenopathy, tenderness and thy romegaly Respiratory Respiratory exam: Present rhonchi; Absent accessory muscle use, respiratory distress and wheezes Cardiovascular Cardiovascular exam: Present normal rate and rhythm; Absent JVD GI/Abdominal GI/Abdominal exam: Present normal bowel sounds and soft; Absent organomegaly and tenderness Extremities Exam Extremities exam: Present full ROM, normal capillary refill and normal inspection; Absent tenderness Neurological Exam Neurological exam: Present alert, CN II-XII intact and oriented X3; Absent motor sensory deficit Psychiatric Psychiatric exam: Present normal affect and normal mood; Absent anxious and depressed Skin Skin exam: Present dry and intact OBJ DATA Labs CBC & Chem 7: 02/15/21 05:11 02/15/21 05:11 Labs: Abnormal Lab Results 02/15/21 02/15/21 02/14/21 05:11 05:11 05:19 WBC RBC 3.00 L Hgb 9.1 L Hct 27.9 L POC Hct RDW 16.0 H Plt Count MPV Neut % (Auto) Lymph % (Auto) Lymph # (Auto) Luce # (Auto) Absolute Neutrophils Sodium 132 L Potassium 3.0 L Chloride 92 L POC Total CO2 Anion Gap 18.0 H POC BUN BUN 56 H 51 H Creatinine 2.6 H 2.2 H POC Creatinine POC Glucose Calcium 8.4 L 8.4 L POC WB Ioniz Calcium Troponin T NT-Pro-B Natriuret Pep Albumin 3.0 L 2.8 L Albumin/Globulin Ratio 0.8 L 0.8 L 02/14/21 02/13/21 02/13/21 05:19 03:15 03:15 WBC 11.7 H 13.9 H RBC 2.89 L 2.72 L Hgb 9.0 L 8.6 L Hct 27.4 L 27.1 L POC Hct RDW 16.3 H 17.1 H Plt Count 120 L MPV 11.8 H Neut % (Auto) 79.9 H 79.7 H Lymph % (Auto) 12.0 L 11.4 L Lymph # (Auto) 1.40 L Luce # (Auto) 1.15 H Absolute Neutrophils 9.37 H 11.11 H Sodium Potassium Chloride POC Total CO2 Anion Gap POC BUN BUN 54 H Creatinine 2.5 H POC Creatinine POC Glucose Calcium 8.4 L POC WB Ioniz Calcium Troponin T NT-Pro-B Natriuret Pep Albumin 3.1 L Albumin/Globulin Ratio 0.9 L 02/12/21 02/12/21 02/12/21 17:21 17:21 17:21 WBC 17.1 H RBC 3.30 L Hgb 10.2 L Hct 30.7 L POC Hct 33 L RDW 16.8 H Plt Count MPV Neut % (Auto) 83.3 H Lymph % (Auto) 9.8 L Lymph # (Auto) Luce # (Auto) 1.12 H Absolute Neutrophils 14.20 H Sodium Potassium Chloride POC Total CO2 21 L Anion Gap POC BUN 47 H BUN Creatinine POC Creatinine 2.6 H POC Glucose 114 H Calcium POC WB Ioniz Calcium 1.08 L Troponin T 0.03 H NT-Pro-B Natriuret Pep 06542.0 H Albumin Albumin/Globulin Ratio Meds: Medications Acetaminophen (Acetaminophen 325 Mg Tablet) 650 mg PO Q6HP PRN; Protocol PRN Reason: Per Pain Protocol/Fever > 101 Last Admin: 02/14/21 02:48 Dose: 650 mg Documented by: Albuterol/Ipratropium (Ipratropium/Albuterol 3 Ml Ampul.Neb) 3 ml NEB Q4HRT PRN PRN Reason: Wheezing Aspirin (Aspirin 81 Mg Tab.Chew) 81 mg PO DAILY [facility] Last Admin: 02/15/21 08:40 Dose: 81 mg Documented by: Atorvastatin Calcium (Atorvastatin 40 Mg Tablet) 40 mg PO DAILY [facility] Last Admin: 02/15/21 08:40 Dose: 40 mg Documented by: Ceftriaxone Sodium (Ceftriaxone 1 Gm Vial) 1 gm IV DAILY [facility] Last Admin: 02/15/21 08:34 Dose: 1 gm Documented by: Clopidogrel Bisulfate (Clopidogrel 75 Mg Tablet) 75 mg PO QDAY [facility] Last Admin: 02/15/21 08:40 Dose: 75 mg Documented by: Diltiazem HCl (Diltiazem 240 Mg Cap.Xl.24h) 240 mg PO QAM [facility] Last Admin: 02/15/21 08:40 Dose: 240 mg Documented by: Docusate Sodium (Docusate Sodium 100 Mg Capsule) 100 mg PO BID [facility] Last Admin: 02/15/21 08:45 Dose: Not Given Documented by: Estradiol (Estradiol 1 Mg Tablet) 0.5 mg PO DAILY [facility] Last Admin: 02/15/21 08:40 Dose: 0.5 mg Documented by: Furosemide (Furosemide 40 Mg Tablet) 40 mg PO BIDD [facility] Last Admin: 02/15/21 07:29 Dose: 40 mg Documented by: Guaifenesin (Guaifenesin/Dextromethorphan Oral Hollie) 10 ml PO Q4HP PRN PRN Reason: Cough Heparin Sodium (Porcine) (Heparin 5,000 Unit/Ml Vial) 5,000 unit SQ Q12 [facility] Last Admin: 02/15/21 08:45 Dose: 5,000 unit Documented by: Hydralazine HCl (Hydralazine 25 Mg Tablet) 50 mg PO TID [facility] Last Admin: 02/15/21 08:37 Dose: 50 mg Documented by: Hyoscyamine (Hyoscyamine Sulfate 0.125 Mg Tablet) 0.125 mg SL TID [facility] Last Admin: 02/15/21 08:46 Dose: 0.125 mg Documented by: Ipratropium Tensed (Ipratropium 0.06% Nasal [place] Bottle 30ml) 2 spray RAUL TIDP PRN PRN Reason: allergy symptoms Levothyroxine Sodium (Levothyroxine 100 Mcg Tablet) 100 mcg PO ACB [facility] Last Admin: 02/15/21 07:29 Dose: 100 mcg Documented by: Lorazepam (Lorazepam 1 Mg Tablet) 1 mg PO HSP PRN PRN Reason: insomnia Last Admin: 02/14/21 20:19 Dose: 1 mg Documented by: Metoprolol Succinate (Metoprolol Succinate 25 Mg Tab.Xl.24h) 25 mg PO QDAY [facility] Last Admin: 02/15/21 08:40 Dose: 25 mg Documented by: Nitroglycerin (Nitroglycerin 0.4 Mg Tab.Subl) 0.4 mg SL Q5M PRN PRN Reason: Chest Pain Ondansetron HCl (Ondansetron 4 Mg/2 Ml Vial) 4 mg IV Q6HP PRN PRN Reason: Nausea And Vomiting Sildenafil (Pulm. Hypertension) 20 Mg Tablet 1 dose PO TID [facility] Last Admin: 02/15/21 08:34 Dose: 1 dose Documented by: Potassium Chloride (Potassium Chloride 20 Meq Tablet) 20 meq PO BIDCC [facility] Prednisone (Pred[facility] 1 Mg Tablet) [facility] Last Admin: 02/15/21 07:29 Dose: 4 mg Documented by: Senna (Sennosides 1 Tablet) 2 tab PO [facility] Last Admin: 02/14/21 20:20 Dose: Not Given Documented by: Sodium Chloride (0.9 % Sodium Chloride 10 Ml Syringe) 10 ml IV Q8 [facility] Last Admin: 02/15/21 05:15 Dose: 10 ml Documented by: Throat Lozenges (Benzocaine/Menthol 1 Lozenge) 1 lozenge PO PRN PRN PRN Reason: Sore Throat Vitamin D (Vitamin D3 1,000 Unit Tablet) 1,000 unit PO DAILY [facility] Last Admin: 02/15/21 08:40 Dose: 1,000 unit Documented by: Zolpidem Tartrate (Zolpidem 5 Mg Tablet) 5 mg PO HSP PRN PRN Reason: Insomnia A/P Assessment and plan (1) Hypothyroidism, acquired: Status: Chronic (2) Hyperlipidemia: Status: Chronic Qualifiers: Hyperlipidemia type: mixed hyperlipidemia Qualified Code(s): E78.2 - Mixed hyperlipidemia (3) Essential hypertension: Status: Chronic (4) Stage 2 acute kidney injury: Status: Acute (5) Chronic kidney disease, stage 3: Status: Acute (6) Pleural effusion: Status: Chronic Comment: left (7) Pulmonary HTN: Status: Acute Comment: Suspect PFO and intracardiac shunt has caused pulmonary HTN. Defer to Dr Johnson on what, if anything can be done. Avoid IV contrast. No evidence or Hx of prior drug use associated with pulmonary HTN, Pulmonary emboli, smoking etc. (8) CHF exacerbation: Status: Acute (9) Bladder mass: Status: Chronic Comment: See below. Will be difficult to biopsy due to recent Left main BHAVYA. Cysto and brushings and urine cytology (10) On home oxygen therapy: Status: Acute (11) Acute on chronic respiratory failure with hypoxemia: Status: Acute (12) CAD (coronary artery disease): Status: Chronic Narrative A/P Narrative: Assessment and plan: 1. Acute on chronic respiratory failure with hypoxemia secondary to diastolic CHF exacerbations with associated bilateral pleural effusions: Stays in inpatient MedSurg with telemetry Intake and output Daily weight 2 L/day fluid restriction Lasix 40 mg PO twice daily Metoprolol ER Consider adding LUPE inhibitor or ARB when kidney function improved Aldactone currently not indicated given preserved LVEF Oxygen therapy titrate to achieve SPO2 greater than or equal to 92% Initially refused to go to [place] [facility] and instead request to go home with home health therapy. When the daughter came, patient's and family changed her mind and now wanting to go to SNF. #2 moderate aortic stenosis: Continue symptomatic control 3. Pulmonary hypertension: Continue sildenafil Continue diltiazem Continue prednisone Oxygen therapy titrate to achieve SPO2 greater than or equal to 92% #4 history of CAD status post stenting: Aspirin Plavix Statin #5 history of essential hypertension's: Currently normotensive Continue beta-lorena, diltiazem, as well as diuretics #6 mixed dyslipidemia: Continue statin therapy next #7 hypothyroidism: Continue thyroid replacement therapy #8 acute on chronic kidney injury: Avoid nephrotoxic agents such as LUPE inhibitor or ARB Lasix 40mg PO BID CMP in the morning to trend kidney functions #9 bladder mass: Will notify urologist Dr. Leo inpatient versus outpatient management #10 community-acquired pneumonia: Blood culture, no growth to date Consider repeat chest x-ray in a few days Rocephin Zithromax Tylenol as needed fever Robitussin DM as needed cough DuoNeb nebs as needed wheezing Covid PCR to rule out Covid pneumonia-->negative for CoVID pneumonia GI prophylaxis: Not currently indicated DVT prophylaxis: Heparin CODE STATUS: Full code Prognosis: Stable Dispositions: Inpatient MedSurg with telemetry; Initially refused to go to [place] [facility] and instead request to go home with home health therapy. When the daughter came, patient's and family changed her mind and now wanting to go to SNF, so pending SNF placement Time Spent With Patient Time: Total time spent is greater than 50% in coordination of care (as documented) at patient's floor/unit and/or counseling patient:
[2021-02-15] MEDS: POTASSIUM CHLORIDE 20 MEQ TABLET PO SCH (16:58)
[2021-02-15] MEDS: SENNOSIDES 1 TABLET PO SCH (21:04)
[2021-02-16] MEDS: ACETAMINOPHEN 325 MG TABLET PO PRN (04:23)
[2021-02-16] MEDS: 0.9 % SODIUM CHLORIDE 10 ML SYRINGE IV SCH (04:45)
[2021-02-16 07:37] LABS: Basophils # (Auto) 0.01 K/mcL (0.00-0.30); Basophils % (Auto) 0.1 % (0.0-2.0); Eosinophils % (Auto) 1.2 % (0.0-7.0); Hemoglobin 8.9 g/dL (11.2-15.7); Lymphocytes # (Auto) 1.44 K/mcL (1.50-4.80); Lymphocytes % (Auto) 16.6 % (15.5-49.0); Mean Cell Volume 93.9 fL (80.0-100.0); Mean Corpuscular HGB Conc 34.2 g/dL (31.0-36.0); Mean Platelet Volume 9.9 fL (7.4-10.4); Monocytes # (Auto) 0.78 K/mcL (0.10-0.90); Neutrophils % (Auto) 73.1 % (38.0-78.0); Platelet Count 159 K/mcL (140-440); RBC 2.77 M/mcL (3.59-5.38); WBC 8.7 K/mcL (4.5-11.0)
[2021-02-16] MEDS: predniSONE 1 MG TABLET PO SCH (08:14)
[2021-02-16] MEDS: ASPIRIN 81 MG TAB.CHEW PO SCH (08:18)
[2021-02-16] MEDS: ESTRADIOL 1 MG TABLET PO SCH (08:20)
[2021-02-16] MEDS: DILTIAZEM 240 MG CAP.XL.24H PO SCH (08:21)
[2021-02-16] MEDS: POTASSIUM CHLORIDE 20 MEQ TABLET PO SCH (08:21)
[2021-02-16] MEDS: hydrALAZINE 25 MG TABLET PO SCH (08:22)
[2021-02-16] MEDS: ATORVASTATIN 40 MG TABLET PO SCH (08:22)
[2021-02-16] MEDS: DOCUSATE SODIUM 100 MG CAPSULE PO SCH (08:22)
[2021-02-16] MEDS: CLOPIDOGREL 75 MG TABLET PO SCH (08:22)
[2021-02-16] MEDS: HEPARIN 5,000 UNIT/ML VIAL SQ SCH (08:24)
[2021-02-16] MEDS: METOPROLOL SUCCINATE 25 MG TAB.XL.24H PO SCH (08:24)
[2021-02-16] MEDS: VITAMIN D3 1,000 UNIT TABLET PO SCH (08:24)
[2021-02-16] MEDS: FUROSEMIDE 40 MG TABLET PO SCH (08:24)
[2021-02-16] MEDS: LEVOTHYROXINE 100 MCG TABLET PO SCH (08:24)
[2021-02-16 08:41] LABS: ALT/SGPT 17 U/L (<40); AST/SGOT 25 U/L (<32); Albumin 3.2 gm/dL (3.2-5.2); Albumin/Globulin Ratio 0.9 (1.0-2.3); Alkaline Phosphatase 67 U/L (39-117); Bilirubin,Total 0.3 mg/dL (0.1-1.0); Blood Urea Nitrogen 60 mg/dL (8-23); Calcium 8.6 mg/dL (8.6-10.4); Carbon Dioxide 25 mmol/L (22-30); Chloride 96 mmol/L (96-108); Globulin 3.4 gm/dL (2.2-3.7); Glomerular Filtration Rate 15; Glucose 81 mg/dL (70-105)
[2021-02-16] MEDS: HYOSCYAMINE SULFATE 0.125 MG TABLET SL SCH (08:45)
--- NOTE | 2021-02-16 09:34 | Discharge Summary ---
Discharge Provider Provider Patient information: Note initiated : 02/16/21 at 9:32 am Service Date, if different from initiated Date: [] Patient: Holly Hernandez a 85 y/o F admitted on 02/12/21 for Shortness of Breath. Chief Complaint: [CHF exacerbation] History of present illness: Ms. Hernandez is a 85 year old F CAD status post stenting, CHF, pulmonary hypertension, chronic kidney disease stage III, hypothyroidism, home oxygen therapy, presenting with 1 day history of acute on chronic respiratory failure. She used home oxygen up to 2 L for good days and even more for bad days according to . 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 She had increasing degree of shortness of breath after the appointment to the point that she increased her oxygen to 4 L but still felt short of breath. Patient is otherwise unable to provide much details of her symptoms such as whether or not she has cough, wheezing, chest pain, fever or chills, unintentional weight gain, leg swellings, etc. patient presented to our ED for further evaluations for worsening shortness of breath. Vital signs significant for oxygen saturations in the high 80s on 2 L of supplemental oxygen's. Rest of the vital signs within normal limits. Labs significant for leukocytosis with WBC 17.1. BNP elevated to 17,000. Serum troponin 0.03. Serum creatinine 2.6 with baseline 1.3. Chest x-ray showing bilateral moderate to severe pleural effusion as well as moderate bibasilar atelectasis versus infiltrate. Date of admission: 02/12/21 23:15 Discharge date: 02/16/21 Primary care physician: David Ríos Consults: 02/12/21 Consult to Physician [CONS] Stat Comment: Consulting Provider: Krishna Hinojosa Reason For Exam: Physician to Consult Discharge Meds Discharge Medications Home Medications ipratropium bromide 42 mcg (0.06 %) nasal spray 2 spray INTRANASAL TID PRN #45 ml 06/27/17 [Rx Confirmed 02/05/21 Last Taken Unknown] lorazepam 1 mg tablet 1 mg PO QHS PRN #90 tab 09/28/17 [Rx Confirmed 02/05/21 Last Taken Unknown] Massage therapy #12 each 12/14/17 [Rx Confirmed 01/18/21 Last Taken Unknown] estradiol 0.5 mg tablet 0.5 mg PO QDAY #90 tab 12/14/17 [Rx Confirmed 02/05/21 Last Taken Unknown] clopidogrel 75 mg tablet 75 mg PO QDAY #90 tab 02/19/18 [Rx Confirmed 02/05/21 Last Taken Unknown] aspirin 81 mg tablet,delayed release 81 mg PO QAM tab 12/10/20 [History Confirmed 02/05/21 Last Taken Unknown] atorvastatin 80 mg tablet 40 mg PO QDAY tab 12/10/20 [History Confirmed 02/13/21 Last Taken Unknown] cholecalciferol (vitamin D3) 25 mcg (1,000 unit) capsule 25 mcg PO QAM cap 12/10/20 [History Confirmed 02/05/21 Last Taken Unknown] levothyroxine 100 mcg tablet 100 mcg PO QDAY tab 01/13/21 [History Confirmed 02/05/21 Last Taken Unknown] prochlorperazine maleate 5 mg tablet 5 mg PO Q6H PRN tab 01/13/21 [History Confirmed 02/05/21 Last Taken Unknown] sildenafil (pulm.hypertension) 20 mg tablet 20 mg PO TID tab 01/13/21 [History Confirmed 02/05/21 Last Taken Unknown] hydralazine 50 mg tablet 50 mg PO TID #300 tab 01/25/21 [Rx Confirmed 02/13/21 Last Taken Unknown] hyoscyamine sulfate 0.125 mg SUBLINGUAL TID 02/05/21 [History Confirmed 02/05/21 Last Taken Unknown] metoprolol succinate 25 mg PO QDAY 02/05/21 [History Confirmed 02/13/21 Last Taken Unknown] nitroglycerin [Nitrostat] 0.4 mg SUBLINGUAL Q5M PRN 02/05/21 [History Confirmed 02/05/21 Last Taken Unknown] prednisone 4 mg PO QDAY 02/05/21 [History Confirmed 02/13/21 Last Taken Unknown] sodium chloride 1,000 mg PO TID 02/05/21 [History Confirmed 02/05/21 Last Taken Unknown] diltiazem HCl 240 mg PO QAM 02/12/21 [History Confirmed 02/13/21 Last Taken Unknown] ondansetron 4 mg PO Q6H PRN 02/12/21 [History Confirmed 02/13/21 Last Taken Unknown] amoxicillin-pot clavulanate [Augmentin] 1 tab PO BID 3 Days #6 tab 02/15/21 [Rx Last Taken Unknown] benzocaine-menthol [Cepacol Sore Throat (roselyn-men)] 1 tim PO PRN PRN #20 ea 02/15/21 [Rx Last Taken Unknown] dextromethorphan-guaifenesin [Robafen DM Cough] 10 ml PO Q4HP PRN #250 ml 02/15/21 [Rx Last Taken Unknown] furosemide 20 mg PO BIDD #30 tab 02/15/21 [Rx Last Taken Unknown] potassium chloride [Klor-Con M20] 20 meq PO BIDCC #14 tab 02/15/21 [Rx Last Taken Unknown] COURSE Hospital Course Hospital course: Patient was admitted on February 12, 2021 for shortness of breath secondary to diastolic CHF exacerbations. She was started on supplemental oxygen therapy, aggressive diuretic therapy with IV Lasix, metoprolol extended release, as well as fluid restrictions. No LUPE inhibitors or ARB were given due to acute kidney injury. She was also being treated for community-acquired pneumonia with empiric antibiotics Rocephin and Zithromax and blood culture has been no growth to date. By February 15, 2001, patient's oxygen requirement went back to her baseline level, afebrile for more than 24 hours, and the leukocytosis resolved, and thus reaching clinical stability. As such, the decision was made to discharge patient home with 1 weeks PCP follow-up made for her, prescription sent to pharmacy, and or questions answered prior to patient being physically discharged. Discharge diagnosis: CHF exacerbation Time Spent with Patient Time attestation: Total time spent providing and/or coordinating discharge services: Patient was admitted on February 12, 2021 for shortness of breath secondary to diastolic CHF exacerbations. She was started on supplemental oxygen therapy, aggressive diuretic therapy with IV Lasix, metoprolol extended release, as well as fluid restrictions. No LUPE inhibitors or ARB were given due to acute kidney injury. She was also being treated for community-acquired pneumonia with empiric antibiotics Rocephin and Zithromax and blood culture has been no growth to date. By February 15, 2001, patient's oxygen requirement went back to her baseline level, afebrile for more than 24 hours, and the leukocytosis resolved, and thus reaching clinical stability. As such, the decision was made to discharge patient home with 1 weeks PCP follow-up made for her, prescription sent to pharmacy, and or questions answered prior to patient being physically discharged. EXAM Constitutional Vitals: Temp Pulse Resp BP Pulse Ox 36.6 C 78 20 128/67 93 02/16/21 08:00 02/16/21 08:00 02/16/21 08:00 02/16/21 08:00 02/16/21 08:00 General appearance: cooperative and no acute distress Head Head exam: Present atraumatic and normocephalic Eye Eye exam: Present EOMI and PERRL ENT ENT exam: Present mucous membranes moist, normal exam and normal external ear exam Additional comments: Nasal cannula in place Neck Neck exam: Present normal inspection; Absent lymphadenopathy, tenderness and th yromegaly Respiratory Respiratory exam: Present rhonchi; Absent accessory muscle use, respiratory distress and wheezes Cardiovascular Cardiovascular exam: Present normal rate and rhythm; Absent JVD GI/Abdominal GI/Abdominal exam: Present normal bowel sounds and soft; Absent organomegaly and tenderness Extremities Exam Extremities exam: Present full ROM, normal capillary refill and normal inspection; Absent tenderness Neurological Exam Neurological exam: Present alert, CN II-XII intact and oriented X3; Absent motor sensory deficit Psychiatric Psychiatric exam: Present normal affect and normal mood; Absent anxious and depressed Skin Skin exam: Present dry and intact Discharge Data Data Completed and Pending Labs on day of discharge: Labs from last 24 hours 02/16/21 02/16/21 05:35 05:34 WBC 8.7 RBC 2.77 L Hgb 8.9 L Hct 26.0 L MCV 93.9 MCH 32.1 MCHC 34.2 RDW 16.0 H Plt Count 159 MPV 9.9 Neut % (Auto) 73.1 Lymph % (Auto) 16.6 [place] % (Auto) 9.0 Eos % (Auto) 1.2 Baso % (Auto) 0.1 Lymph # (Auto) 1.44 L [place] # (Auto) 0.78 Eos # (Auto) 0.10 Baso # (Auto) 0.01 Absolute Neutrophils 6.34 Sodium 134 Potassium 3.8 Chloride 96 Carbon Dioxide 25 Anion Gap 13.0 BUN 60 H Creatinine 2.8 H GFR Calculation 15 Glucose 81 Calcium 8.6 Total Bilirubin 0.3 AST 25 ALT 17 Alkaline Phosphatase 67 Total Protein 6.6 Albumin 3.2 Globulin 3.4 Albumin/Globulin Ratio 0.9 L Preliminary micro results at discharge 02/12/21 03:15 Blood Culture - Preliminary Blood 02/12/21 00:35 Blood Culture - Preliminary Blood Discharge Plan Patient/Caregiver Discharge Instructions Activity: increase activity as tolerated Diet: Renal Instructions: Furosemide (By mouth), Potassium Chloride (By mouth), Dextromethorphan (By mouth), Amoxicillin/Clavulanate Potassium (By mouth), Heart Failure (DC), Low-Sodium Diet (DC), Pneumonia (DC) Activity Restrictions/Additional Instructions: Resume home diet as tolerated. Take all meals up in chair, sitting at 90 degrees, to prevent aspiration. Increase activity as tolerated. Continue fall precautions. Take all medication as directed. Some medications were electronically transmitted to [facility]. 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 Return to ER for fever, chills, uncontrolled pain, inability to urinate or have a bowel movement, nausea and/or vomiting, swelling, redness, signs of infection, shortness of breath, chest pain, return of symptoms, or other acute symptom Prescriptions: New furosemide 40 mg Tablet 20 mg PO BIDD Qty: 30 RF: 0 dextromethorphan-guaifenesin [Robafen DM Cough] 10-100 mg/5 mL Liquid 10 ml PO Q4HP PRN (Reason: Cough) Qty: 250 RF: 0 potassium chloride [Klor-Con M20] 20 mEq Tablet,Er Particles/Crystals 20 meq PO BIDCC Qty: 14 RF: 0 Cepacol Sore Throat (roselyn-men) 15-2.6 mg Lozenge 1 tim PO PRN PRN (Reason: Sore Throat) Qty: 20 RF: 0 amoxicillin-pot clavulanate [Augmentin] 875-125 mg tablet 1 tab PO BID 3 Days Qty: 6 RF: 0 Continued ipratropium bromide 42 mcg (0.06 %) spray,non-aerosol 2 spray INTRANASAL TID PRN (Reason: allergy symptoms) Qty: 45 RF: 3 clopidogrel 75 mg tablet 75 mg PO QDAY Qty: 90 RF: 3 hydralazine 50 mg tablet 50 mg PO TID Qty: 300 RF: 3 estradiol 0.5 mg tablet 0.5 mg PO QDAY Qty: 90 RF: 3 lorazepam 1 mg tablet 1 mg PO QHS PRN (Reason: insomnia) Qty: 90 RF: 1 aspirin 81 mg tablet,delayed release (DR/EC) 81 mg PO QAM RF: 0 atorvastatin 80 mg tablet 40 mg PO QDAY RF: 0 cholecalciferol (vitamin D3) 25 mcg (1,000 unit) capsule 25 mcg PO QAM RF: 0 levothyroxine 100 mcg tablet 100 mcg PO QDAY RF: 0 sildenafil (pulm.hypertension) 20 mg tablet 20 mg PO TID RF: 0 prochlorperazine maleate 5 mg tablet 5 mg PO Q6H PRN (Reason: nausea and vomiting) RF: 0 sodium chloride 1 gram Tablet 1,000 mg PO TID RF: 0 hyoscyamine sulfate 0.125 mg tablet, sublingual 0.125 mg sublingual TID RF: 0 nitroglycerin [Nitrostat] 0.4 mg Tablet, Sublingual 0.4 mg SUBLINGUAL Q5M PRN (Reason: Chest Pain) RF: 0 metoprolol succinate 25 mg Tablet Extended Release 24 Hr 25 mg PO QDAY RF: 0 prednisone 5 mg tablet 4 mg PO QDAY RF: 0 diltiazem HCl 240 mg capsule,extended release 24hr 240 mg PO QAM RF: 0 ondansetron 4 mg Tablet,Disintegrating 4 mg PO Q6H PRN (Reason: Nausea) RF: 0 Discontinued cephalexin 500 mg capsule 500 mg PO TID Qty: 15 RF: 0 furosemide 40 mg tablet 20 mg PO QAM RF: 0 No Action (DME) Massage therapy Qty: 12 RF: 0 Follow Up Plan Follow up with: David Ríos MD [Primary Care Provider] - 03/17/21 9:30 am () Patient Disposition: Xfer SNF Rehab Potential: Good I certify that the patient requires SNF services: Yes Overall status at discharge: patient is back to baseline Discharge Orders: Discharge Order (Routine); Ordered 02/16/21 Ordered By: Krishna Hinojosa
[2021-02-16] MEDS: SILDENAFIL 20 MG PO SCH (10:54)
[2021-02-16] MEDS: cefTRIAXone 1 GM VIAL IV SCH (10:54)
== END 2021-02-16 16:21 | DRG 291 ==
LOC: ED 16:13 → MEDSUR 23:15
PROVIDERS: ADMIT Internal Medicine; ATTEND Internal Medicine